=== PATIENT | female | born 2005 | race Caucasian/White ===

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

== ENCOUNTER 2023-02-05 15:14 | Emergency (ER) | payer SELFPAY ==
--- OUTSIDE RECORDS SUMMARY | 2023-02-05 15:19 | XMS REPORT | Continuity of Care Document ---
:2005 Author Organization [facility] t Address [address] [place] [address] [address] [place] [address] Care Team Providers Name Role Phone ALETHEA MUÑOZ Primary Care Physician Unavailable Truman Harmon Attending Clinician Unavailable Kendal Jones Attending Clinician Unavailable CHACHA PALOMARES Attending Clinician Unavailable King EMILIE MD, James C Attending Clinician Unknown, Attending Attending Clinician Unavailable CHRISTIANO MUNSON III Attending Clinician Unavailable Doctor Unassigned, [place] Attending Clinician Unavailable SALBADOR MARLOW Attending Clinician Unavailable Salbador Marlow MD Attending Clinician [phone] Chacha Palomares MD Attending Clinician AZRA MIRANDA Attending Clinician Unavailable Azra Curran Attending Clinician Wade Dyson Attending Clinician JEANNIE DO Attending Clinician Unavailable Jeannie Sena Attending Clinician MARIA E BANERJEE Attending Clinician Unavailable NICOLE EASON Attending Clinician Unavailable Nicole Eason DO Attending Clinician Nurse, [facility] Attending Clinician Unavailable aMria E Banerjee MD Attending Clinician Catarina RN, Hue Ferrer Attending Clinician Unavailable Kendal Jones Admitting Clinician Unavailable NICOLE EASON Admitting Clinician Unavailable Payers Payer Name Policy Type Policy Number Effective Date Expiration Date [facility] [id number] 2022 [place]ICE [place] ST[place] 00:00:00 MEDICAID COMM [id number] 2022 [place] 00:00:00 [place] [facility] [id number] 2015 [facility] 00:00:00 Problems Condition Condition Condition Status Onset Resolution Last Treating Co mments Source Name Details Category Date Date Treatment Clinician Date No known No known Disease Unive rs active active ity of problems problems [facility] [id number] Pain, Problem [place] 17241 joint, [facility] knee, - [facility] Allergies, Adverse Reactions, Alerts Allergy Allergy Status Severity Reaction(s) Onset Inactive Treating Comm ents Source Name Type Date Date Clinician No Known DA Active U [facility]12 [facility] 00 l [facility] NO KNOWN Drug Active Univers ALLERGIE Class ity of S [facility] NO KNOWN Allergy Active [facility] Social History Social Habit Start Date Stop Date Quantity Comments Source ASSERTION 2021-12-[address] [facility]00 [facility] History of [facility] - Tobacco Use [facility] Tobacco use and 2022-07-01 2022-07-01 Smokeless tobacco [facility] exposure 00:[facility]00 00:00:00 non-user Medical Center Alcohol intake 2022-07-01 2022-07-[address] [facility] 00:00:00 00:00:00 non-drinker Medical Nadeen eubanks (finding) Exposure to 2021-09-06 2021-09-16 Not sure University of SARS-CoV-2 00:00:00 10:19:00 [place] [facility] (event) Branch Sex Assigned At [birth year] PATRICIO Pinon kekomal 00:00:00 00:00:00 Medical Center Smoking Status Start Date Stop Date Source Never smoked tobacco [facility] Medications Ordered Filled Start Stop Current Ordering Indication Dosage Frequency Signature Comments Components Source Medication Medication Date Date Medication? Clinician (SIG) Name Name Yes Take by Univer s 25/iron 3-23 mouth. ity of fum/folic/d 18:30: [facility] 20 Medical (-1 Branch ORAL) medroxyPROG Yes 150mg 1 mL by Un bravo ESTERone - Intramuscu ity o f 150 mg/mL 18:30: lar route Etienne as injection 03 every 3 Medical (three) Branch months. amoxicillin Yes [id number] 875mg Take 1 Univers 875 mg 3-23 tablet by ity of tablet 00:00: mouth in [place] 00 the Medical morning Branch and 1 tablet in the evening. citalopram 0 Yes 10mg QD Take 1 [...] mouth Center in the morning. amoxicillin 2022-0 2023- No 500mg Take 1 Un bravo 500 mg 3-22 03-30 capsule by ity of capsule 00:00: 04:59 mouth. [place] 00 :00 Medical Branch amoxicillin 2022-0 2022- No 500mg [id number] Take [address] (AMOXIL) 3-22 03-29 [id number] capsule L ukes 500 MG 00:00: 23:59 3D (500 mg Medical capsule 00 :00 total) by Center mouth in the morning and 1 capsule (500 mg total) at noon and 1 capsule (500 mg total) in the evening. Do all this for 7 days. amoxicillin 2022- No 500mg Q.[id number] Take [address] (AMOXIL) 07-01 [id number] capsule L ukes 500 MG 00:00: 23:59 3D (500 mg Medical capsule 00 :00 total) by Center mouth in the morning and 1 capsule (500 mg total) at noon and 1 capsule (500 mg total) in the evening. Do all this for 7 days. amoxicillin 2022- No 500mg Q.[id number] Take [address] (AMOXIL) 07-01 [id number] capsule L ukes 500 MG 00:00: 23:59 [...] 00:00 00 :00 Mobic 7.5 Mobic 7.5 202- No 1{table QD Mobic 7.5 MG MG 8-15 09-14 t} MG 00:00: 00:00 00 :00 Mobic 7.5 Mobic 7.5 2021- No 1{table QD Mobic 7.5 MG MG 8-15 09-14 t} MG 00:00: 00:00 00 :00 Mobic 7.5 Mobic 7.5 2021- No 1{table QD Mobic 7.5 MG MG 8-15 09-14 t} MG 00:00: 00:00 00 :00 neomycin-po 2021-0 Yes [id number] 3[drp] Place 3 Univers lymyxin-hyd 6-07 Drops in ity of rocortisone 00:00: left ear 4 [place] otic 00 (four) Medical solution times Branch daily. neomycin-po 2021-0 Yes [id number] 3[drp] Place 3 Univers lymyxin-hyd 6-07 Drops in ity of rocortisone 00:00: left ear 4 [place] otic 00 (four) Medical solution times Branch daily. neomycin-po 2021-0 Yes [id number] 3[drp] Place 3 Univers lymyxin-hyd 6-07 Drops in ity of rocortisone 00:00: left ear 4 [place] otic 00 (four) Medical solution times Branch daily. neomycin-po 2021-0 Yes [id number] 3[drp] Place 3 Univers lymyxin-hyd 6-07 Drops in ity of rocortisone 00:00: left ear 4 [place] otic 00 (four) Medical solution times Branch daily. neomycin-po 2021-0 Yes [id number] 3[drp] Place 3 Univers lymyxin-hyd 6-07 Drops in ity of rocortisone 00:00: left ear 4 [place] otic 00 (four) Medical solution times Branch daily. amoxicillin 2021- No [id number] 1{tbl} Take 1 Univers -clavulanat 6-07 06-18 tablet by it y of e 875-125 00:00: 04:59 [place] 2 [place] mg per 00 :00 (two) Medical tablet times Branch daily for 10 days. amoxicillin 2021- No [id number] 1{tbl} Take 1 Univers -clavulanat 6-07 06-18 tablet by it y of e 875-125 00:00: 04:59 mouth 2 [place] mg per 00 :00 (two) Medical tablet times Branch daily for 10 days. citalopram Yes TAKE 1 Unive rs 20 mg 5-24 TABLET BY ity of tablet 00:00: MOUTH [place] 00 EVERY DAY Medical Branch DIRECTED citalopram Yes TAKE 1 Unive rs 20 mg 5-24 TABLET BY ity of tablet 00:00: MOUTH EVERY DAY Medical Branch DIRECTED citalopram Yes TAKE 1 Unive rs 20 mg 5-24 TABLET BY ity of tablet 00:00: MOUTH EVERY DAY Medical Branch DIRECTED citalopram Yes TAKE 1 Unive rs 20 mg 5-24 TABLET BY ity of tablet 00:00: MOUTH [place] EVERY DAY Medical Branch DIRECTED citalopram Yes TAKE 1 Unive rs 20 mg 5-24 TABLET BY ity of tablet 00:00: MOUTH [place] EVERY DAY Medical Branch DIRECTED ofloxacin Yes [id number] 5[drp] Place 5 Univers 0.3 % otic 5-09 Drops in ity o f drops 00:00: left ear 2 [place] (two) Medical times Branch daily. ofloxacin 0 Yes [id number] 5[drp] Place 5 Univers 0.3 % otic 5-09 Drops in ity o f drops 00:00: left ear 2 [place] (two) Medical times Branch daily. ofloxacin Yes [id number] 5[drp] Place 5 Univers 0.3 % otic 5-09 Drops in ity o f drops 00:00: left ear 2 [place] (two) Medical times Branch daily. ofloxacin 2021-0 Yes [id number] 5[drp] Place 5 Univers 0.3 % otic 5-09 Drops in ity o f drops 00:00: left ear 2 [place] (two) Medical times Branch daily. ofloxacin Yes [id number] 5[drp] Place 5 Univers 0.3 % otic 5-09 Drops in ity o f drops 00:00: left ear 2 [place] (two) Medical times Branch daily. ofloxacin 0 Yes [id number] 5[drp] Place 5 Univers 0.3 % otic 5-09 Drops in ity o f drops 00:00: left ear 2 [place] (two) Medical times Branch daily. SERTraline 2021-0 Yes 25mg Take 25 mg U nivers 25 mg 4-21 by mouth ity of tablet 00:00: daily. [place] Medical Branch SERTraline 2021-0 Yes 25mg Take 25 mg U nivers 25 mg 4-21 by mouth ity of tablet 00:00: daily. [place] Medical Branch SERTraline 2021-0 Yes 25mg Take 25 mg U nivers 25 mg 4-21 by mouth ity of tablet 00:00: daily. [facility] Branch SERTraline Yes 25mg Take 25 mg U nivers 25 mg 4-21 by mouth ity of tablet 00:00: daily. [place] [facility] Branch SERTraline Yes 25mg Take 1 Unive rs 25 mg 4-21 tablet by ity of tablet 00:00: mouth in [place] [address] the Medical morning. Branch lactulose 2021- No 30mL 30 mL, Unive rs (CEPHULAC) 06-09 Oral, ity of solution 30 18:15: 17:41 [place] 1 [place] 00 :[place] dose, On [facility] 06/09/21 at 1215, ISIS ondansetron No 4mg 4 mg, Slow Univers (ZOFRAN 06-09 IV Push, ity of (PF)) 16:15: 15:21 ONCE, 1 [place] injection 4 00 :00 dose, On Medi berto mg [facility] 06/09/21 at 1015, ISIS morpHINE No 4mg 4 mg, Slow Un bravo injection 4 06-09 IV Push, ity of mg 16:15: 15:21 ONCE, 1 [place] 00 :00 dose, On [facility] 06/09/21 at 1015, STAT iopamidol 2021- No [id number] 100mL 100 mL, Univers (ISOVUE 06-09 Intravenou ity o f 370-500 mL) 15:37: 15:38 s, ONCE, 1 [place] injection 00 :00 dose, On Medica l 100 mL [facility] 06/09/21 at 1000, Routine medroxyPROG 2021- No [id number] 150mg Univers ESTERone 05-06 ity of (DEPO-PROVE 20:15: 18:58 [facility]) syringe 00 :00 Medical 150 mg [place] medroxyPROG 2021- No [id number] 150mg 150 mg, Univers ESTERone 05-06 Intramuscu ity of (DEPO-PROVE 20:15: 18:58 lar, ONCE, [facility]) syringe 00 :00 1 dose, On Me dical 150 mg Tue Branch 05/06/21 at 1415, Routine medroxyPROG 2022-0 Yes 150mg 150 mg by [...] Medical (three) Branch months. medroxyPROG 2020-04- No [id number] 150mg Univers ESTERone 1-02 11-02 ity of (DEPO-PROVE 20:15: 19:23 [place] RA) syringe 00 :00 Medical 150 mg Branch medroxyPROG 2020-04- No [id number] 150mg 150 mg, Univers ESTERone 04-1302 Intramuscu ity of (DEPO-PROVE 20:15: 19:23 lar, ONCE, [place] RA) syringe 00 :00 1 dose, On Me dical 150 mg Tue Branch 02/11/21 at 1515, Routine medroxyPROG 2020- No [id number] 150mg Univers ESTERone 8-10 08-10 ity of (DEPO-PROVE 22:00: 21:33 [place] RA) syringe 00 :00 Medical 150 mg Branch medroxyPROG 2020- No [id number] 150mg 150 mg, Univers ESTERone 8-10 08-10 Intramuscu ity of (DEPO-PROVE 22:00: 21:33 lar, ONCE, [place] RA) syringe 00 :00 1 dose, Medic al 150 mg Tue Branch 11/19/20 at 1700, Routine medroxyPROG 2020- No [id number] 150mg Univers ESTERone 8-10 08-10 ity of (DEPO-PROVE 22:00: 21:33 [place] RA) syringe 00 :00 Medical 150 mg Branch medroxyPROG 2020- No [id number] 150mg 150 mg, Univers ESTERone 8-10 08-10 Intramuscu ity of (DEPO-PROVE 22:00: 21:33 lar, ONCE, [place] RA) syringe 00 :00 1 dose, Medic al 150 mg Tue Branch 11/19/20 at 1700, Routine medroxyPROG 2020- No [id number] 150mg Univers ESTERone 5-17 05-17 ity of (DEPO-PROVE 16:15: 15:50 [place] RA) 00 :00 Medical injection Branch 150 mg medroxyPROG 2020- No [id number] 150mg 150 mg, Univers ESTERone 5-17 05-17 [...] every 3 Medical (three) Branch months. medroxyPROG 1-0 Yes 150mg 150 mg by Univers ESTERone 5-17 Intramuscu ity o f 150 mg/mL 10:52: lar route Etienne as injection 41 every 3 Medical (three) Branch months. medroxyPROG 2021-0 Yes 150mg 150 mg by Univers ESTERone 5-17 Intramuscu ity o f 150 mg/mL 10:52: lar route Etienne as injection 41 every 3 Medical (three) Branch months. medroxyPROG 2020-0 2020- No 150mg Univ ers ESTERone 06-03 ity of (DEPO-PROVE 18:15: 16:54 [place] RA) 00 :00 Medical injection Branch 150 mg medroxyPROG 2020-0 2020- No 150mg 150 mg, U nivers ESTERone 06-03 Intramuscu ity of (DEPO-PROVE 18:15: 16:54 lar, ONCE, [place] RA) 00 :00 1 dose, Medical injection Mon Branch 150 mg 06/03/20 at 1215, Routine medroxyPROG 2019-04- No 150mg Univ ers ESTERone -05 03- ity of (DEPO-PROVE 22:00: 20:51 [place] RA) 00 :00 Medical injection Branch 150 mg medroxyPROG 2020- 2020- No 150mg 150 mg, U nivers ESTERone 05-05 11-24 Intramuscu ity of (DEPO-PROVE 22:00: 20:51 lar, ONCE, [place] RA) 00 :00 1 dose, Medical injection Tue Branch 150 mg 03/05/20 at 1600, Routine medroxyPROG 2020- 2020- No 150mg Univ ers ESTERone 05-05 11-24 ity of (DEPO-PROVE 22:00: 20:51 [place] RA) 00 :00 Medical injection Branch 150 mg medroxyPROG 2020- 2020- No 150mg 150 mg, U nivers ESTERone 05-05 11-24 Intramuscu ity of (DEPO-PROVE 22:00: 20:51 lar, ONCE, [place] RA) 00 :00 1 dose, Medical injection Tue Branch 150 mg 03/05/20 at 1600, Routine medroxyPROG 2020-0 2020- No 150mg Univ ers ESTERone 10-26 ity of (DEPO-PROVE 17:30: 16:28 [place] RA) 00 :00 Medical injection Branch 150 mg medroxyPROG 2020-0 2020- No 150mg 150 mg, U nivers ESTERone 10-26-17 Intramuscu ity of (DEPO-PROVE 17:30: 16:28 lar, ONCE, [place] RA) 00 :00 1 dose, Medical injection Fri Branch 150 mg 10/27/19 at 1230, Routine medroxyPROG 2020-0 2020- No 150mg Univ ers ESTERone 10-26- ity of (DEPO-PROVE 17:30: 16:28 [place] RA) 00 :00 Medical injection Branch 150 mg medroxyPROG 2020-0 2020- No 150mg 150 mg, U nivers ESTERone 10-26-17 Intramuscu ity of (DEPO-PROVE 17:30: 16:28 lar, ONCE, [place] RA) 00 :00 1 dose, Medical injection Fri Branch 150 mg 10/27/19 at 1230, Routine No known No Univers medications ity of [facility] No known No Univers medications ity of [facility] Vital Signs Vital Name Observation Time Observation Value Comments Source Systolic blood 2022-07-02 23:28:00 124 mm[Hg] Univer sity of pressure [facility] Diastolic blood 2022-07-02 23:28:00 80 mm[Hg] Unive rsity of [facility] Heart rate 2022-07-02 23:28:00 99 /min Universi ty [facility] Body temperature 2022-07-02 23:28:00 36.67 Luz Maria [facility] 2022-07-02 23:28:00 15 /min [facility] Body weight 2022-07-02 23:28:00 75.297 kg Universi ty [facility] Oxygen saturation in 2022-07-02 23:28:00 97 /min [facility] Arterial blood by [facility] [place] Pulse oximetry Branch HEIGHT 2022-07-01 00:35:00 160 cm WEIGHT 2022-07-01 00:35:00 73.483 kg HEIGHT 2022-07-01 00:35:00 160 cm WEIGHT 2022-07-01 00:35:00 73.483 kg HEIGHT 2022-07-01 00:35:00 160 cm WEIGHT 2022-07-01 00:35:00 73.483 kg height 2021-12-19 10:00:00 63 [in_i] [facility] weight 2021-12-19 10:00:00 149 [lb_av] [facility] temperature 2021-12-19 10:00:00 98.1 [degF] [facility] bmi 2021-12-19 10:00:00 26.39 kg/m2 [facility] blood pressure 2021-12-19 10:00:00 120 mm[Hg] [facility] - systolic [facility] blood pressure 2021-12-19 10:00:00 64 mm[Hg] [facility] - diastolic [facility] height 2021-11-24 08:00:00 63 [in_i] [facility] weight 2021-11-24 08:00:00 149 [lb_av] [facility] bmi 2021-11-24 08:00:00 26.39 kg/m2 [facility] - [facility] blood pressure 2021-11-24 08:00:00 112 mm[Hg] [facility] - systolic [facility] blood pressure 2021-11-24 08:00:00 68 mm[Hg] [facility] - diastolic [facility] Systolic blood 2021-09-16 15:24:00 110 mm[Hg] Univer sity of pressure [facility] Diastolic blood 2021-09-16 15:24:00 70 mm[Hg] Unive rsity of pressure [facility] Heart rate 2021-09-16 15:24:00 73 /min Universi ty of [facility] Body temperature 2021-09-16 15:24:00 36.67 Luz Maria Univ ersity of [facility] Respiratory rate 2021-09-16 15:24:00 18 /min Univ ersity of [facility] Body height 2021-09-16 15:24:00 157.5 cm Universi ty of [facility] Body weight 2021-09-16 15:24:00 65.862 kg Universi ty of [facility] BMI 2021-09-16 15:24:00 26.56 kg/m2 Universi ty of [facility] Body mass index 2021-09-16 15:24:00 88.17 % Unive rsity of (BMI) [Percentile] [facility] ica Per age and sex Branch Oxygen saturation in 2021-09-16 15:24:00 100 /min University Arterial blood by [facility] [place] Pulse oximetry Branch Systolic blood 2021-08-18 03:15:00 97 mm[Hg] Univer sity of pressure [facility] Diastolic blood 2021-08-18 03:15:00 77 mm[Hg] Unive rsity of pressure [facility] Heart rate 2021-08-18 03:15:00 86 /min Universi ty of [facility] Body temperature 2021-08-18 03:15:00 37.33 Luz Maria Univ ersity of [facility] Respiratory rate 2021-08-18 03:15:00 20 /min Univ ersity of [facility] Body height 2021-08-18 03:15:00 157.5 cm Universi ty of [facility] Body weight 2021-08-18 03:15:00 64.411 kg Universi ty of [place] [facility] BMI 2021-08-18 03:15:00 25.97 kg/m2 Universi ty of [place] [facility] Body mass index 2021-08-18 03:15:00 86.34 % Unive rsity of (BMI) [Percentile] [place] Med ical Per age and sex Branch Oxygen saturation in 2021-08-18 03:15:00 100 /min University of Arterial blood by [facility] [place] Pulse oximetry Branch Systolic blood 2021-06-09 17:35:00 118 mm[Hg] Univer sity of pressure [place] [facility] Diastolic blood 2021-06-09 17:35:00 76 mm[Hg] Unive rsity of pressure [place] [facility] Heart rate 2021-06-09 17:35:00 96 /min Universi ty of [facility] Respiratory rate 2021-06-09 17:35:00 20 /min Univ ersity of [facility] Oxygen saturation in 2021-06-09 17:35:00 99 /min University of Arterial blood by [facility] [place] Pulse oximetry Branch Body temperature 2021-06-09 15:07:00 36.22 Luz Maria Univ ersity of [place] [facility] Systolic blood 2021-05-06 18:59:00 120 mm[Hg] Univer sity of pressure [place] [facility] Diastolic blood 2021-05-06 18:59:00 81 mm[Hg] Unive rsity of pressure [place] [facility] Heart rate 2021-05-06 18:59:00 89 /min Universi ty of [facility] Body temperature 2021-05-06 18:59:00 36.83 Luz Maria Univ ersity of [place] [facility] Respiratory rate 2021-05-06 18:59:00 18 /min Univ ersity of [place] [facility] Body height 2021-05-06 18:59:00 160 cm Universi ty of [place] [facility] [place] Body weight 2021-05-06 18:59:00 65.953 kg Universi ty of [place] [facility] BMI 2021-05-06 18:59:00 25.76 kg/m2 Universi ty of [facility] Body mass index 2021-05-06 18:59:00 86.06 % Unive rsity of (BMI) [Percentile] [place] Med ical Per age and sex Branch Systolic blood 2021-04-17 17:47:00 109 mm[Hg] Univer sity of pressure [place] [facility] Branch Diastolic blood 2021-04-17 17:47:00 76 mm[Hg] Unive rsity of pressure [facility] Heart rate 2021-04-17 17:47:00 114 /min Universi ty of [facility] Body temperature 2021-04-17 17:47:00 36.89 Luz Maria Univ ersity of [facility] Respiratory rate 2021-04-17 17:47:00 18 /min Univ ersity of [facility] Body weight 2021-04-17 17:47:00 64.32 kg Universi ty of [facility] Systolic blood 2021-02-11 19:23:00 125 mm[Hg] Univer sity of pressure [facility] Diastolic blood 2021-02-11 19:23:00 77 mm[Hg] Unive rsity of pressure [facility] Heart rate 2021-02-11 19:23:00 91 /min Universi ty of [facility] Body temperature 2021-02-11 19:23:00 37 Luz Maria Univ ersity of [facility] Respiratory rate 2021-02-11 19:23:00 18 /min Univ ersity of [facility] Body height 2021-02-11 19:23:00 160 cm Universi ty of [facility] Body weight 2021-02-11 19:23:00 62.143 kg Universi ty of [facility] BMI 2021-02-11 19:23:00 24.27 kg/m2 Universi ty of [facility] Body mass index 2021-02-11 19:23:00 79.59 % Unive rsity of (BMI) [Percentile] [facility] ical Per age and sex Branch Systolic blood 2020-11-19 20:49:00 116 mm[Hg] Univer sity of pressure [facility] Branch Diastolic blood 2020-11-19 20:49:00 77 mm[Hg] Unive rsity of pressure [facility] Heart rate 2020-11-19 20:49:00 81 /min Universi ty of [facility] Body temperature 2020-11-19 20:49:00 36.94 Luz Maria Univ ersity of [facility] Respiratory rate 2020-11-19 20:49:00 16 /min Univ ersity of [facility] Body height 2020-11-19 20:49:00 160 cm Universi ty of [place] [facility] Body weight 2020-11-19 20:49:00 57.425 kg Universi ty of [place] [facility] BMI 2020-11-19 20:49:00 22.43 kg/m2 Universi ty of [place] [facility] Systolic blood 2020-08-26 15:51:00 109 mm[Hg] Univer sity of pressure [place] [facility] Diastolic blood 2020-08-26 15:51:00 70 mm[Hg] Unive rsity of pressure [place] [facility] Heart rate 2020-08-26 15:51:00 80 /min Universi ty of [place] [facility] Body temperature 2020-08-26 15:51:00 36.83 Luz Maria Univ ersity of [place] [facility] Respiratory rate 2020-08-26 15:51:00 18 /min Univ ersity of [place] [facility] Body height 2020-08-26 15:51:00 160 cm Universi ty of [place] [facility] Body weight 2020-08-26 15:51:00 54.341 kg Universi ty of [place] [facility] BMI 2020-08-26 15:51:00 21.22 kg/m2 Universi ty of [place] [facility] Systolic blood 2020-08-26 15:51:00 109 mm[Hg] Univer sity of pressure [place] [facility] Diastolic blood 2020-08-26 15:51:00 70 mm[Hg] Unive rsity of pressure [place] [facility] Heart rate 2020-08-26 15:51:00 80 /min Universi ty of [place] [facility] Body temperature 2020-08-26 15:51:00 36.83 Luz Maria Univ ersity of [place] [facility] Respiratory rate 2020-08-26 15:51:00 18 /min Univ ersity of [place] [facility] Body height 2020-08-26 15:51:00 160 cm Universi ty of [place] [facility] Body weight 2020-08-26 15:51:00 54.341 kg Universi ty of [place] [facility] BMI 2020-08-26 15:51:00 21.22 kg/m2 Universi ty of [place] [facility] Systolic blood 2020-06-03 16:56:00 121 mm[Hg] Univer sity of pressure [place] [facility] Diastolic blood 2020-06-03 16:56:00 78 mm[Hg] Unive rsity of pressure [place] [facility] Heart rate 2020-06-03 16:56:00 90 /min Universi ty of [place] [facility] Body temperature 2020-06-03 16:56:00 36.67 Luz Maria Univ ersity of [place] [facility] Respiratory rate 2020-06-03 16:56:00 18 /min Univ ersity of [place] [facility] Body height 2020-06-03 16:56:00 160 cm Universi ty of [place] [facility] Body weight 2020-06-03 16:56:00 54.885 kg Universi ty of [place] [facility] BMI 2020-06-03 16:56:00 21.43 kg/m2 Universi ty of [place] [facility] Systolic blood 2020-06-03 16:56:00 121 mm[Hg] Univer sity of pressure [place] [facility] Diastolic blood 2020-06-03 16:56:00 78 mm[Hg] Unive rsity of pressure [place] [facility] Heart rate 2020-06-03 16:56:00 90 /min Universi ty of [place] [facility] Body temperature 2020-06-03 16:56:00 36.67 Luz Maria Univ ersity of [place] [facility] Respiratory rate 2020-06-03 16:56:00 18 /min Univ ersity of [place] [facility] Body height 2020-06-03 16:56:00 160 cm Universi ty of [place] [facility] Body weight 2020-06-03 16:56:00 54.885 kg Universi ty of [place] [facility] BMI 2020-06-03 16:56:00 21.43 kg/m2 Universi ty of [place] [facility] Systolic blood 2020-03-05 19:54:00 107 mm[Hg] [facility] Diastolic blood 2020-03-05 19:54:00 70 mm[Hg] [facility]ive [facility] Heart rate 2020-03-05 19:54:00 70 /min [facility] Body temperature 2020-03-05 19:54:00 36.94 Luz Maria [facility] Respiratory rate 2020-03-05 19:54:00 18 /min [facility] Body height 2020-03-05 19:54:00 160 cm [facility] Body weight 2020-03-05 19:54:00 54.432 kg [facility] [place] [facility] [place] BMI 2020-03-05 19:54:00 21.26 kg/m2 [facility] Systolic blood 2020-03-05 19:54:00 107 mm[Hg] Univer sity of pressure [facility] Diastolic blood 2020-03-05 19:54:00 70 mm[Hg] Unive rsity of pressure [facility] Heart rate 2020-03-05 19:54:00 70 /min Universi ty of [facility] Body temperature 2020-03-05 19:54:00 36.94 Luz Maria Univ ersity of [facility] Respiratory rate 2020-03-05 19:54:00 18 /min Univ ersity of [facility] Body height 2020-03-05 19:54:00 160 cm Universi ty of [facility] Body weight 2020-03-05 19:54:00 54.432 kg Universi ty of [facility] BMI 2020-03-05 19:54:00 21.26 kg/m2 Universi ty of [facility] Systolic blood 2019-10-27 15:40:00 108 mm[Hg] Univer sity of pressure [facility] Diastolic blood 2019-10-27 15:40:00 69 mm[Hg] Unive rsity of pressure [facility] Heart rate 2019-10-27 15:40:00 73 /min Universi ty of [facility] Body temperature 2019-10-27 15:40:00 36.83 Luz Maria Univ ersity of [facility] Respiratory rate 2019-10-27 15:40:00 16 /min Univ ersity of [facility] Body height 2019-10-27 15:40:00 157.5 cm [facility] [place] [facility] [place] Body weight 2019-10-27 15:40:00 54.976 kg [facility] [place] BMI 2019-10-27 15:40:00 22.17 kg/m2 Universi ty of [facility] Systolic blood 2022-07-01 01:33:00 126 mm[Hg] [facility] Diastolic blood 2022-07-01 01:33:00 72 mm[Hg] [facility] Heart rate 2022-07-01 01:33:00 97 /min [facility] Body temperature 2022-07-01 01:33:[address] [facility] Respiratory rate 2022-07-01 01:33:00 18 /min [facility] Oxygen saturation in 2022-07-01 01:33:00 97 /min [facility] Arterial blood by Medical Ce nter Pulse oximetry Body height 2022-07-01 00:35:00 160 cm [facility] Body weight 2022-07-01 00:35:00 73.483 kg [facility] BMI 2022-07-01 00:35:00 28.70 kg/m2 [facility] Body mass index 2022-07-01 00:35:00 92.20 % [facility] (BMI) [Percentile] Medical C enter Per age and sex Procedures Procedure Date / Time Performing Clinician Source Performed [id number] 2022-08-22 00:00:00 MONMA.05 [facility] [id number] 2022-08-22 00:00:00 MONMA.05 [facility] [id number] 2022-08-22 00:00:00 MONMA.05 [facility] [id number] 2022-08-22 00:00:00 MONMA.05 [facility] [id number] 2022-08-22 00:00:00 MONMA.05 [facility] ASSIGNMENT OF BENEFITS 2022-07-02 23:22:44 Doctor Unassigned, No [facility] Name [facility] SARS-COV2/INFLUENZA/RSV 2022-07-01 00:39:00 Salbador Marlow [facility] RT-PCR [facility] NOTICE OF PRIVACY 2021-08-18 02:46:54 Doctor Unassigned, No [facility] PRACTICES Name [facility] CONSENT/REFUSAL FOR 2021-08-18 02:46:14 Doctor Unassigned, [facility] ABDOMEN PELVIS W 2021-06-09 15:47:31 Nicole Eason [facility] CONTRAST [facility] LIPASE 2021-06-09 15:20:00 Nicole Eason [facility] COMP. METABOLIC PANEL 2021-06-09 15:20:00 Nicole [id number] CBC WITH DIFF 2021-06-09 15:20:00 Nicole Eason [facility] URINALYSIS 2021-06-09 15:20:00 Nicole Eason [facility] POCT TEST 2021-06-09 15:17:00 [facility] NOTICE OF PRIVACY 2021-06-09 15:03:21 Doctor Unassigned, No [facility] Name Medical Branch CONSENT/REFUSAL FOR 2021-06-09 15:03:10 Doctor Unassigned, No Un iversity [facility] DIAGNOSIS AND TREATMENT [facility] CONSENT/REFUSAL FOR 2021-04-17 17:33:56 Doctor Unassigned, No [facility] Name Medical Branch CONSENT FOR 2020-11-19 05:01:00 Doctor Unassigned, No [facility] CONTRACEPTION [facility] POCT URINALYSIS W/O 2020-03-05 00:00:00 Chacha Palomares [facility] SPECIFIC GRAVITY [facility] POCT TEST 2019-10-27 15:37:00 Chacha Palomares [facility] Plan of Care Planned Activity Planned [...] Counseling and Screening (12+)] Future Scheduled 2022-12-11 INFLUENZA VACCINE (Season [facility] Test 00:00:00 Ended) [code = INFLUENZA Med ical Center VACCINE (Season Ended)] Future Scheduled 2022-12-11 Influenza Vaccine (#1) [facility] 00:00[facility]00 [code = Influenza Vaccine Me dical Center (#1)] Future Scheduled 2022-12-11 Influenza Vaccine (#1) [facility] 00:00:00 [code = Influenza Vaccine Az dical Center (#1)] Future Scheduled 2022-09-19 DTAP/TDAP/TD VACCINES ([address] [facility] Test 00:00:00 - Tdap) [code = Medical Cent er DTAP/TDAP/TD VACCINES (1 - Tdap)] Future Scheduled 2022-09-19 DTAP/TDAP/TD VACCINES (1 [facility] [...] screening Medical Cent er (procedure) [code = 538878180] Future Scheduled 2018-09-[address] [facility] 00:00:00 virus screening Medical Cent er (procedure) [code = 518095333] Future Scheduled 2010-09-19 DTAP/TDAP/TD VACCINES (1 [facility] [...] [facility] Test 00[facility]00:00 trachomatis (procedure) [facility] [code = 819769437] Future Scheduled 2003 Screening for Chlamydia [facility] Test 00:00:00 trachomatis (procedure) [facility] [code = 602207687] Future Scheduled 2003 Screening for Chlamydia [facility] Test 00:00:00 trachomatis (procedure) [facility] [code = 867478153] Encounters Start End Encounter Admission Attending Care Care Encounter Source Date/Time Date/Time Type Type Clinicians Facility Department ID 2021-11-28 Outpatient [facility] [id number] Common 10:26:04 , [facility] 2021-11-24 [facility] [id number] Common 08:13:02 , [facility] 2022-08-21 2022-08-24 Inpatient JULIEN Jones [facility] OB [id number] [facility] 07:36:00 16:51:00 Kendal [facility] 2022-07-03 2022-07-03 Outpatient Prasad PALOMARES [facility] [id number] Univers 10:00:00 10:00:00 CHACHA dolye [facility] 2022-07-02 2022-07-02 Urgent Christiano Munson [facility] [id number] Univers 18:20:00 18:40:00 Care Unknown, Attending HEALTH [id number] ity of [place] [id number] Etienne as SUYAPA?BLEA [phone] Az palmer [address] MEDICAL OFFICE BUILDING 2022-07-02 2022-07-02 Outpatient R JEANNIE III, [facility] [id number] Univers 18:20:00 18:20:00 CHRISTIANO [facility] 2022-07-02 2022-07-02 Orders Doctor DANIELA [id number] Univers 00:00:00 00:00:00 Only Unassigned, NÉSTOR [id number] ity of [place] [facility] 4.2.7.2.686 Etienne as [phone] [address] 2022-07-01 2022-07-01 Emergency ER PETHE, [facility] Emergency [id number] [facility] 00:29:00 01:35:00 [facility] 2022-07-01 2022-07-01 Emergency Pethe, [facility] [id number] 00:29:00 01:35:00 [facility] 2022-07-01 2022-07-01 Emergency ER Pethe, [facility] [id number] 00:29:00 01:35:00 [facility] 2022-07-01 2022-07-01 Travel [facility] [id number] [facility] 00:[facility] 00:[facility]00 [facility] 2022-07-01 2022-07-01 Travel [facility] [id number] [facility] 00:[facility] 00:00:00 [facility] 2021-12-24 2021-12-24 Outpatient R ADUM, [facility] [id number] Univers 15:30:00 15:30:00 [facility] 2021-12-23 2021-12-23 Outpatient R ADUM, [facility] [id number] Univers 13:30:00 13:30:00 [facility] 2021-12-19 2021-12-19 [facility] [id number] Co mmon 00:00:00 00:00:00 VISIT EST Spir it PT LEVEL [facility] 2021-12-16 2021-12-16 Outpatient R TOM, [facility] [id number] Univers 16:15:00 16:15:00 CHACHA doyle [facility] 2021-12-11 2021-12-11 (TEL) STLMLC STLMLC [id number] Co mmon 00:00:00 00:00:00 [facility] 2021-12-11 2021-12-11 (TEL) STLMLC STLMLC [id number] Co mmon 00:00:00 00:00:00 [facility] 2021-11-25 2021-11-25 (TEL) STLMLC STLMLC [id number] Co mmon 00:00:00 00:00:00 [facility] 2021-11-24 2021-11-24 OFFICE STLMLC STLMLC [id number] Co mmon 00:00:00 00:00:00 VISIT NEW Spir it PT LEVEL 3 - [facility] 2021-11-11 2021-11-11 Outpatient R TOM, [facility] [id number] Univers 14:00:00 14:00:00 CHACHA doyle [facility] 2021-10-29 2021-10-29 [facility] [id number] Univers 00:00:00 00:00:00 [facility]acha [id number] [facility] [place] [phone] Az dic[address] 2021-09-16 2021-09-16 Outpatient Prasad MIRANDA [facility] [id number] Univers 10:40:00 11:03:11 AZRA doyle [facility] 2021-09-16 2021-09-16 Urgent Azra Miranda [facility] [id number] Univers 10:40:00 11:03:11 [facility] [id number] itjerel [facility] 4.2.7.2.686 Etienne as SUYAPA?BLEA [phone] [address] OFFICE [facility] 2021-09-16 2021-09-16 Nhung Miranda [facility] 1.2.840.114 [id number] Univers 00:00:00 00:00:00 (Out) [facility] [id number] it y of [facility] 4.2.7.2.686 Etienne as SUYAPA?BLEA [phone] [address] 2021-08-22 2021-08-22 Outpatient R TOM [facility] [id number] Univers 10:30:00 10:30:00 CHACHA [facility] 2021-08-17 2021-08-18 Emergency X SANDRA [facility] ERT [id number] Univers 22:17:00 02:20:00 JEANNIE [facility] 2021-08-17 2021-08-18 [facility] 1.2.840.114 [id number] Univers 22:17:00 02:20:00 Jeannie COONEY [id number] ity [facility] [id number] [facility] [phone] [address] 2021-08-04 2021-08-04 Outpatient R MARIA E BANERJEE [facility] [id number] Univers 14:00:00 14:00:00 ity [facility] 2021-06-09 2021-06-09 Emergency [facility] [id number] Univers 09:09:00 12:03:00 NICOLE [facility] 2021-06-09 2021-06-09 Emergency [facility] [id number] Univers 09:09:00 12:03:00 Nicole COONEY [id number] ity of [place] 4.2.7.2.686 [facility] [phone] [address] 2021-05-06 2021-05-06 Nurse Nurse, [facility] 1.2.840.114 [id number] Univers 14:00:00 14:15:00 Visit Maria E Banerjee [id number] ity of [place] [id number] [facility] [address] [facility] 2021-05-06 2021-05-06 Outpatient R MARIA E BANERJEE [facility] [id number] Univers 14:00:00 14:00:00 ity of [facility] 2021-04-18 2021-04-18 Letter DANIELA Elmore 1.2.840.114 [id number] Univers 00:00:00 00:00:00 (Out) Hue T NÉSTOR 350.1.13.10 it y of [facility] 4.2.7.2.686 Etienne as [phone] [facility] [address] [place] 2021-04-17 2021-04-17 Outpatient R RUTH [facility] [id number] Univers 11:40:00 12:28:27 AZRA ity of [facility] 2021-04-17 2021-04-17 Urgent Ruth [facility] 1.2.840.114 [id number] Univers 11:40:00 12:00:00 Care [facility] [id number] it y of [place] 4.2.7.2.686 Etienne as SUYAPA?BLEA [phone] [facility] [address] [place] MEDICAL OFFICE BUILDING 2021-04-17 2021-04-17 Orders Doctor DANIELA 1.2.840.114 [id number] Univers 00:00:00 00:00:00 Only Unassigned, NÉSTOR 350.1.13.10 ity of [place] [facility] 4.2.7.2.686 Etienne as [phone] [facility] [address] [place] 2021-02-11 2021-02-11 Nurse Nurse, [facility] 1.2.840.114 [id number] Univers 14:08:51 14:23:59 Visit Chacha Palomares 350.1.13.10 ity of [place].2.[place] [phone] [facility] [address] [facility] 2021-02-11 2021-02-11 Outpatient R TOM [facility] [id number] Univers 14:00:00 14:00:00 CHACHA doyle [facility] 2020-11-19 2020-11-19 Office Adum, [facility] 1.2.840.114 [id number] Univers 15:32:08 16:35:21 Visit Chacha Cooney 350.1.13.10 ity of [place].7.2.[place] [phone] Az dical nal [address] [place] [address] 2020-11-19 2020-11-19 Outpatient R ADUM, [facility] [id number] Univers 15:30:00 15:30:00 CHACHA jerel [facility] 2020-11-19 2020-11-19 Orders Doctor DANIELA 1.2.840.114 [id number] Univers 00:00:00 00:00:00 Only Unassigned, NÉSTOR 350.1.13.10 ity of [place] [facility] 4.2.7.2.686 Etienne as [phone] [address] 2020-10-29 2020-10-29 Outpatient R ADUM, [facility] [id number] Univers 15:30:00 15:30:00 CHACHA jerel [facility] 2020-10-28 2020-10-28 Outpatient R AD, [facility] [id number] Univers 09:30:00 09:30:00 CHACHA doyle [facility] 2020-08-26 2020-08-26 Nurse Nurse, [facility] 1.2.840.114 [id number] Univers 10:41:25 10:55:00 Visit Adum, Chacha Cooney 350.1.13.10 ity [facility] 4.2.7.2.686 [place] [phone] Az dical [address] 2020-08-26 2020-08-26 Nurse Nurse, [facility] 1.2.840.114 [id number] 10:41:25 10:55:00 Visit Emeka Cooney 350.1.13.10 Health [place] 4.2.7.2.686 Professio [phone] [address] 2020-08-26 2020-08-26 Outpatient R [facility] [id number] Univers 10:30:00 10:30:00 ity of [facility] 2020-08-26 2020-08-26 Letter [facility] 1.2.840.114 [id number] Univers 00:00:00 00:00:00 (Out) Chacha Cooney 350.1.13.10 ity of [place] 4[place].7.2.[place] [phone] Az dic[address] 2020-08-26 2020-08-26 Letter [facility] 1.2.840.114 [id number] 00:00:00 00:00:00 (Out) Chacha Cooney 350.1.13.10 [place] 4.2.7.2.686 Professio [phone] [address] 2020-06-03 2020-06-03 Nurse Nurse, [facility] 1.2.840.114 [id number] [facility] 10:17:51 10:57:39 Visit Chacha Palomares 350.1.13.10 ity of [place] 4[place].7.2.[place] [phone] [address] 2020-06-03 2020-06-03 Nurse Nurse, [facility] 1.2.840.114 [id number] 10:17:51 10:57:39 Visit WomenSonias Karl 350.1.13.10 [facility] 4.2.7.2.686 Professio [phone] [address] 2020-06-03 2020-06-03 Outpatient R [facility] [id number] Univers 10:30:00 10:30:00 ity of [facility] 2020-03-05 2020-03-05 [facility] 1.2.840.114 [id number] Univers 13:37:24 14:50:22 Visit Chacha Cooney 350.1.13.10 ity of [place] 4[place]2.7.2.[place] [phone] [address] 2020-03-05 2020-03-05 [facility] 1.2.840.114 [id number] 13:37:24 14:50:22 Visit Chacha [place] 350.1.13.10 [place] 4.2.7.2.686 Professio [phone] [address] 2020-03-05 2020-03-05 Outpatient R AD, [facility] [id number] Univers 13:30:00 13:30:00 [facility] 2020-02-29 2020-02-29 Outpatient R AD, [facility] [id number] Univers 16:00:00 16:00:00 [facility] 2020-02-29 2020-02-29 [facility] [id number] Univers 00:00:00 00:00:00 Chacha Cooney 350.1.13.10 ity of [place] 4.2.7.2.[place] [phone] [address] 2020-01-19 2020-01-19 Outpatient R [facility] [id number] Univers 15:30:00 15:30:00 ity [facility] 2020-01-19 2020-01-19 Outpatient R [facility] [id number] Univers 09:00:00 09:00:00 ity [facility] 2019-11-08 2019-11-08 [facility] [id number] Univers 09:30:00 09:30:00 [facility] 2019-10-27 2019-10-27 Office [facility] 1.2.840.114 [id number] Univers 10: 11:32:52 Visit Chacha Cooney 350.1.13.10 ity of [place] 4.2.7.2.[place] [phone] [address] 2019-10-27 2019-10-27 [facility] [id number] Univers 10:00:00 10:00:00 [facility] Results Test Description Test Time Test Comments Results Result Comments Source AG HEPATITIS B SURFACE 2022-08-21 21:48:00 Test Item Value Reference Range Interpretation Comme nts AG HEPATITIS B SURFACE (test code = HBSAG) NONREACTIVE NONREACTIVE AB HEPATITIS C [id number] 21:48:00 Test Item Value Reference Range Interpretation Comments AB HEPATITIS C (test code = NONREACTIVE NONREACTIVE HCVAB) SIGNAL TO CUTOFF (test code = 0.16 <0.80 N CUTOFF) AB [id number] 21:48:00 Test Item Value Reference Range Interpretation Comments AB TREPONEMA (test code = TREPAB) NONREACTIVE NONREACTIVE AB HIV 1 21:48:00 Test Item Value Reference Range Interpretation Comments AB HIV 1 2 (test NONREACTIVE NONREACTIVE [facility] code = [id number]) 4th Gen HIV Ag/Ab Combo Screen Coronavirus 2019 nCoV [id number] 21:01:00 Test Item Value Reference Range Interpretation Comments Coronavirus 2019 Negative Negative Negative r esults should nCoV Bedside (test be treate d as presumptive code = and, ifinconsis tent with [id number]) clinical signs and symptoms or nec essaryfor [...] ROM FDA UA RFLX MICR CULT IF [id number] 19:29:00 Test Item Value Reference Range Interpretation [...] > 100.4 FSpecimen Description: CLEAN CATCHComments to Precision L[employer] 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: [id number] 19:21:00 Test Item Value Reference Range Interpretation Comments LACTIC ACID (test code = LACT) 1.1 MMOL/L 0.5-2.2 N CBC W/AUTO [id number] 19:06:00 Test Item Value Reference Range Interpretation [...] NORMAL NORMAL code = PLTMR) RUPTURE OF [id number] 09:36:00 Test Item Value Reference Range Interpretation Comments RUPTURE OF MEMBRANES (test code NON-RUPTURED = ROM) CBC W/AUTO [id number] 09:24:00 Test Item Value Reference Range Interpretation [...] SARS-Co V-2 (test code = target nucleic 93677-0) acids are not detected in thi s [...] om SARS-CoV-2 in a nasopharyngeal swab specimen [facility] from individual s suspected of COVID-19 by the ir healthcare provider. Influenza A RT-PCR Negative Negative The Flu A target (test code = [place] [address]-0) not detected in this specimen. Influenza B RT-PCR Negative Negative The Flu B target (test code = [place] 89791-7) not detected in this specimen. RSV by RT-PCR (test Negative Negative The RSV target code = 00042-8) nucleic acid s are not detected in [...] the Act. Fact Sheet for Healthcare Providers:https://w [employer].Remotemedical/Docu ments/Xpert%20Xpres s%20SARS%20CoV-2/Fa ct%20Sheets/302-390 2%61GCOV-DAN-1%20HE ALTHCARE%20PROVIDER S%20FACT%20SHEET.pd f Fact Sheet for Healthcare Patients:https://lien Just Be Friends/Docum ents/Xpert%20Xpress %20SARS%20Cov-2/Fac t%20Sheets/302-3801 %59DVCI-OSQ-5%20PAT IENT%20FACT%20SHEET .pdf Lab Interpretation Normal (test code = 30913-6) [facility] (Symptomatic ONLY) 2022-07-01 01:24:45 Test Item Value Reference Interpretation Comments Range SARS-COV2/RT-PCR Negative Negative The SARS-Co V-2 (test code = target nucleic 07968-4) acids are not detected in thi s [...] rapid, real-nelson e RT-PCR test intended for th e qualitative detection of nucleic acid fr om SARS-CoV-2 in a nasopharyngeal swab specimen collec елена from individual s suspected of COVID-19 by the ir healthcare provider. Influenza A RT-PCR Negative Negative The Flu A target (test code = [place] 40763-4) not detected in this specimen. Influenza B RT-PCR Negative Negative The Flu B target (test code = [place] 41537-8) not detected in this specimen. RSV by RT-PCR (test Negative Negative The RSV target code = 40025-9) nucleic acid s are not detected in [...] SARS-CoV-2/Flu/RSV by their healthcare provider. Results from [facility] Xpert Xpress SARS-CoV-2/Flu/RSV test should be correlated [...] the Act. Fact Sheet for Healthcare Providers:https://w Songza/Docu ments/Xpert%20Xpres s%20SARS%20CoV-2/Fa ct%20Sheets/302-390 2%80DXTQ-UTB-2%20HE ALTHCARE%20PROVIDER S%20FACT%20SHEET.pd f Fact Sheet for Healthcare Patients:https://[employer]/Docum ents/Xpert%20Xpress %20SARS%20Cov-2/Fac t%20Sheets/302-3801 %89DUUG-HTG-5%20PAT IENT%20FACT%20SHEET .pdf Lab Interpretation Normal (test code = 91978-4) [facility]V RT-[facility] (Symptomatic ONLY) 2022-07-01 01:24:45 Test Item Value Reference Interpretation Comments Range SARS-COV2/RT-PCR Negative Negative The SARS-Co V-2 (test code = target nucleic 76412-5) acids are not detected in thi s [...] rapid, real-nelson e RT-PCR test intended for th e qualitative detection of nucleic acid fr om SARS-CoV-2 in a nasopharyngeal swab specimen colle елена from individual s suspected of COVID-19 by the healthcare provider. Influenza A RT-PCR Negative Negative The Flu A target (test code = [place] 90001-5) not detected in this specimen. Influenza B RT-PCR Negative Negative The Flu B target (test code = [place] 47227-2) not detected in this specimen. RSV by RT-PCR (test Negative Negative The RSV target code = 89288-3) nucleic acid s are not detected in [...] SARS-CoV-2/Flu/RSV by their healthcare provider. Results from [facility] Xpert Xpress SARS-CoV-2/Flu/RSV test should be correlated [...] the Act. Fact Sheet for Healthcare Providers:https://w Songza/Docu ments/Xpert%20Xpres s%20SARS%20CoV-2/Fa ct%20Sheets/302-390 2%24VUQX-RZA-1%20HE ALTHCARE%20PROVIDER S%20FACT%20SHEET.pd f Fact Sheet for Healthcare Patients:https://ww [employer]/Docum ents/Xpert%20Xpress %20SARS%20Cov-2/Fac t%20Sheets/302-3801 %24RGZI-YUQ-3%20PAT IENT%20FACT%20SHEET .pdf Lab Interpretation Normal (test code = 23294-8) [facility]RSV [id number] 01:24:45 Test Item Value Reference Range Interpretation Comments SARS-COV2/RT-PCR Negative Negative The SARS-Co V-2 target (test code = nucleic acids a re not 6198739) detected in thi s specimen. Negat august [...] individuals michael pected of COVID-19 by the [facility] ider. INFLUENZA A RT-PCR Negative Negative The Flu A target nucleic (test code = acids are not d etected in 19100516) this specimen. INFLUENZA B RT-PCR Negative Negative The Flu B target nucleic (test code = acids are not d etected in 19100517) this specimen. RSV RT-PCR (test Negative Negative The RSV [facility] nucleic code = 9351408) acids are no t detected in this [...] of the Act.Fact Sheet for Healthcare Providers:https ://www.[employer]/Documents/Xpert%20Xpress%20SARS%20CoV-2/Fact%20Sheets/302-390 2%74AMQW-QLC-6%20HEALTHCARE%20PROVIDERS%20FACT%20SHEET.pdfFact Sheet for Healthcare Patients:https://www.Camp[employer].nfon/Docum ents/Xpert%20Xpress%20SARS%20Cov-2/Fact%20Sheets/302-3801%72QIXU-ABO-3%20PATIENT %20FACT%20SHEET.pdfCOMP. METABOLIC PANEL (62447)2021-06-09 16:06:38 Test Item Value Reference Range Interpretation Comments NA (test code = 137 mmol/L 135-145 7560902226) K (test code = 4.5 mmol/L 3.5-5.0 5331436141) CL (test code = 103 mmol/L 98-108 8206288677) CO2 TOTAL (test code = 24 mmol/L 23-31 8888106878) AGAP (test code = 2-16 5021427987) BUN (test code = 14 mg/dL 7-23 2490745957) GLUCOSE (test code = 96 mg/dL 70-110 1445217019) CREATININE (test code = 0.67 mg/dL 0.50-1.04 0769284490) TOTAL BILI (test code = 0.6 mg/dL 0.1-1.9 6156643956) CALCIUM (test code = 9.5 mg/dL 8.6-10.6 1479266742) T PROTEIN (test code = 7.2 g/dL 6.3-8.2 5859123669) ALBUMIN (test code = 5.0 g/dL 3.5-5.0 2477962477) ALK PHOS (test code = 98 U/L 34-122 0399019903) ALTv (test code = 17 U/L 5-35 1742-6) AST(SGOT) (test code = 22 U/L 13-40 7515624194) TOPHER (test code = TOPHER) Association of [...] tests). Lab Interpretation Normal (test code = 85388-9) [facility] 16[facility]06:18 Test Item Value Reference Range Interpretation Comments LIPASE (test code = 6550693798) 170 U/L 0-220 Lab Interpretation (test code = Normal 99452-2) [facility] WITH [id number] 15:48:57 Test Item Value Reference Range Interpretation Comments WBC (test code = See_Comment [Automated 7382-2) message] The sy stem which generated this result transmitted reference range : 4.50 - 13.50 10*3/?L. The reference range was not used to interpret this result as normal/abnormal . RBC (test code = See_Comment H [Automated 354-8) message] The sy stem which generated this [...] RDW-SD (test code = 39.2 fL 38.5-49.0 16958-7) RDW-CV (test code = 12.7 % 11.5-14.0 788-0) PLT (test code = See_Comment [Automated 777-3) message] The sy stem which generated this result transmitted reference range : 135 - 361 10*3/ ?L. The reference r zeina was not used to interpret this result as normal/abnormal . MPV (test code = 9.5 fL 9.4-13.3 93844-9) NRBC/100 WBC (test See_Comment [Automat ed code = 5133824965) message] The system which generated this result transmitted reference range : 0.0 - 10.0 /100 WBCs. The refer ence range was not u sed to interpret th is result as normal/abnormal . NRBC x10^3 (test code <0.01 See_Comment [Auto mated = 3693599160) message] The s ystem which generated this result transmitted reference range : 10*3/?L. The reference range was not used to interpret this result as normal/abnormal . GRAN MAT (NEUT) % 78.9 % (test code = 770-8) IMM GRAN % (test code 0.40 % = 9564838168) LYMPH % (test code = 16.3 % 736-9) MONO % (test code = 3.5 % 5905-5) EOS % (test code = 0.5 % 713-8) BASO % (test code = 0.4 % 706-2) GRAN MAT x10^3(ANC) 6.64 10*3/uL 1.50-10.30 (test code = 2894500137) IMM GRAN x10^3 (test 0.03 10*3/uL 0.00-0.06 code = 3317834153) LYMPH x10^3 (test code 1.37 10*3/uL 0.70-7.40 = 731-0) MONO x10^3 (test code 0.29 10*3/uL 0.00-0.50 = 742-7) EOS x10^3 (test code = 0.04 10*3/uL 0.00-0.40 711-2) BASO x10^3 (test code 0.03 10*3/uL 0.00-0.10 = 704-7) Lab Interpretation Abnormal (test code = 89025-5) [facility] [id number] 15:17:00 Test Item Value Reference Range Interpretation Comments POCT PREG (test code = 1605) NEGATIVE On board controls acceptable with present C Line (test code = 3574) POCT PREG LOT # (test code = 3575) [id number] POCT PREG TEST DATE (test 05/12/2022 code = 3576) Lab Interpretation (test code = Normal 52822-7) [facility] URINALYSIS W/O SPECIFIC [id number] 20:51:00 Test Item Value Reference Range Interpretation [...] code = 3257) n/a Negative - Negative [facility] URINALYSIS W/O SPECIFIC [id number] 20:51:00 Test Item Value Reference Range Interpretation [...] code = 3257) n/a Negative - Negative [facility] [id number] 15:37:00 Test Item Value Reference Range Interpretation Comments POCT PREG (test code = 1605) Negative On board controls acceptable with C Yes Line (test code = 3574) POCT PREG LOT # (test code = 3575) POCT PREG TEST DATE (test code = 3576) [facility] [id number] 15:37:00 Test Item Value Reference Range Interpretation Comments POCT PREG (test code = 1605) Negative On board controls acceptable with C Yes Line (test code = 3574) POCT PREG LOT # (test code = 3575) POCT PREG TEST DATE (test code = 3576) [facility]"
--- NOTE | 2023-02-05 16:48 | RAD REPORT ---
EXAM DESCRIPTION: Ruby Single View02/05/2023 4:27 pm CLINICAL HISTORY: Chest pain COMPARISON: none FINDINGS: The lungs appear clear of acute infiltrate. The heart is normal size IMPRESSION: No acute abnormalities displayed
[2023-02-05 17:57] LABS: Specific Gravity 1.015 (1.005-1.030)
[2023-02-05 17:58] LABS: Specific Gravity 1.015 (1.005-1.030); Urine Bacteria None Seen /HPF (<20); Urine Bilirubin NEGATIVE (Negative); Urine Blood Trace (Negative); Urine Clarity Clear (Clear); Urine Color Colorless (Yellow); Urine Glucose NEGATIVE (Negative); Urine Protein NEGATIVE (Negative); Urine RBC <5 /HPF (None Seen); Urine Urobilinogen Normal (Normal)
[2023-02-05 18:00] LABS: Absolute Lymphocytes (CBC) 1.9 K/uL (0.7-4.9); Hematocrit 35.1 % (36.0-45.0); Lymphocytes % 31.9 % (15.3-44.8); MCV 72.1 fL (80-100); MPV 7.2 fL (7.6-11.3); Platelets 265 thou/uL (152-406); RBC Red Blood Cell Count 4.87 M/uL (3.86-4.86)
[2023-02-05 18:14] LABS: ALT/SGPT 23 U/L (13-56); AST/SGOT 12 U/L (15-37); Albumin 3.8 g/dL (3.4-5.0); Alkaline Phosphatase 97 U/L (45-117); BUN Blood Urea Nitrogen 10 mg/dL (7-18); Bicarbonate 30 mEq/L (21-32); Bilirubin Total 0.4 mg/dL (0.2-1.0); Glomerular Filtration Rate 107 ml/min (=/>90); Glucose Level 93 mg/dL (74-106); Magnesium 2.1 mg/dL (1.6-2.4); Potassium 3.9 mEq/L (3.5-5.1); Protein, Total 7.1 g/dL (6.4-8.2); Sodium Level 138 mEq/L (136-145); Thyroid Stimulating Hormone 0.641 uIU/mL (0.358-3.740)
[2023-02-05 18:20] LABS: Bilirubin Direct < 0.1 mg/dL (0-0.2); Bilirubin Indirect, Calculated ND mg/dL (0.2-0.8); Troponin High Sensitivity < 3.0 pg/mL (<58.9)
--- NOTE | 2023-02-05 18:27 | EDPHYS ---
Physician Documentation [facility] Name: Marlyn Garcia Age: 17 yrs Sex: Female : 2005 Arrival Date: 02/05/2023 Time: 15:14 Bed 16 Private MD: ED Physician Roney Panchal HPI: 02/05 17:31 This 17 yrs old Female presents to ER via Ambulatory with complaints of Chest Pain. sb4 17:31 The patient or guardian reports chest pain that is located primarily in the substernal sb4 area. The pain radiates to back. Associated signs and symptoms: The patient has no apparent associated signs or symptoms. The chest pain is described as sharp. Duration: The patient or guardian reports multiple episodes, with no pattern. Modifying factors: The symptoms are alleviated by nothing. the symptoms are aggravated by deep breath. The patient has not experienced similar symptoms in the past. The patient has not recently seen a physician. Historical: - PMHx: 15:43 bladder reflux; ld1 - PSHx: 15:43 Tonsillectomy; ld1 - Immunization history:: Adult Immunizations up to date, Client reports receiving the 2nd dose of the Covid vaccine. - Social history:: Smoking status: Reported history of juuling and/or vaping. Patient/guardian denies using alcohol. ROS: 17:31 Constitutional: Negative for fever, chills, and weight loss, sb4 17:31 Cardiovascular: Positive for chest pain, 17:31 All other systems are negative, Exam: 17:31 Constitutional: This is a well developed, well nourished patient who is awake, alert, sb4 and in no acute distress. Head/Face: Normocephalic, atraumatic. Eyes: Extra-ocular motions intact. Periorbital areas with no swelling, redness, or edema. ENT: Mucous membranes moist. Cardiovascular: Regular rate and rhythm with a normal S1 and S2. Respiratory: Lungs have equal breath sounds bilaterally, clear to auscultation and percussion. No rales, rhonchi or wheezes noted. No increased work of breathing, no retractions or nasal flaring. Abdomen/GI: Soft, non-tender, no distension. Skin: Warm, dry with normal turgor. Normal color with no rashes, no lesions, and no evidence of cellulitis. MS/ Extremity: Pulses equal, no cyanosis. Neurovascular intact. Full, normal range of motion. Neuro: Awake and alert, GCS 15, oriented to person, place, time, and situation. Motor strength 5/5 in all extremities. Sensory grossly intact. Vital Signs: 15:42 Pulse 99; Resp 20; Temp 98.7; Pulse Ox 100% ; Weight 77.11 kg; Height 5 ft. 3 in. ; ld1 Pain 10/10; 15:44 BP 135 / 83; Pulse 78; ld1 17:42 BP 120 / 83; Pulse 67; Resp 16 S; Pulse Ox 99% ; kc6 15:42 Body Mass Index 30.11 (77.11 kg, 160.02 cm) - Percentile 93.8 % ld1 15:42 Pain Scale: Adult ld1 MDM: 15:48 Patient medically screened. sb4 17:31 Differential diagnosis: abnormal EKG, acute pericarditis, anxiety, chest wall pain, sb4 costochondritis, gastritis, pancreatitis, peptic ulcer disease, pleurisy, pneumonia, pulmonary embolus. 18:26 Data reviewed: vital signs, nurses notes, lab test result(s), EKG, radiologic studies, sb4 and as a result, I will discharge patient. Counseling: I had a detailed discussion with the patient and/or guardian regarding the historical points, exam findings, and any diagnostic results supporting the discharge/admit diagnosis, lab results, radiology results, to return to the emergency department if symptoms worsen or persist or if there are any questions or concerns that arise at home. 02/05 15:52 Order name: Basic Metabolic Panel; Complete Time: 18:21 sb4 02/05 15:52 Order name: CBC with Diff; Complete Time: 18:02 sb4 02/05 15:52 Order name: D-Dimer; Complete Time: 18:16 sb4 02/05 15:52 Order name: LFT's; Complete Time: 18:21 sb4 02/05 15:52 Order name: Magnesium; Complete Time: 18:21 sb4 02/05 15:52 Order name: Troponin HS; Complete Time: 18:21 sb4 02/05 15:52 Order name: UAM; Complete Time: 18:01 sb4 02/05 15:52 Order name: Test, Urine; Complete Time: 18:01 sb4 02/05 15:52 Order name: TSH; Complete Time: 18:21 sb4 02/05 15:52 Order name: XRAY Chest (1 view); Complete Time: 16:52 sb4 02/05 15:52 Order name: EKG; Complete Time: 15:52 sb4 02/05 15:52 Order name: Cardiac monitoring; Complete Time: 17:40 sb4 02/05 15:52 Order name: EKG - Nurse/Tech; Complete Time: 17:40 sb4 02/05 15:52 Order name: IV Saline Lock; Complete Time: 17:40 sb4 02/05 15:52 Order name: Labs collected and sent; Complete Time: 17:40 sb4 02/05 15:52 Order name: O2 Per Protocol; Complete Time: 17:21 sb4 02/05 15:52 Order name: O2 Sat Monitoring; Complete Time: 17:21 sb4 EC:46 Rate is 68 beats/min. Rhythm is regular, Normal Sinus Rhythm. QRS [place] is Normal. [place] sb4 interval is normal at 146 msec. QRS interval is normal at 84 msec. QT interval is normal at 384 msec. No Q waves. T waves are Normal. No ST changes noted. Clinical impression: Normal ECG. Interpreted by me. Reviewed by me. Administered Medications: No medications were administered Disposition Summary: 02/05/23 18:26 Discharge Ordered Notes: Location: Home sb4 Problem: an ongoing problem sb4 Symptoms: are unchanged sb4 Condition: Stable sb4 Diagnosis - Costochondritis sb4 Followup: sb4 - With: Private Physician - When: As needed - Reason: Recheck today's complaints, Re-evaluation by your physician Discharge Instructions: - Discharge Summary Sheet sb4 - Costochondritis, [id number]-[id number] sb4 Forms: - Medication Reconciliation Form sb4 - Thank You Letter sb4 - Antibiotic Education sb4 - Prescription Opioid Use sb4 - Patient Portal Instructions sb4 - Leadership Thank You Letter sb4 Prescriptions: - Diclofenac Sodium 75 mg Oral Tablet Sustained Release - take 1 tablet ORAL route 2 times per day; 30 tablet; Refills: 0, Product sb4 Selection Permitted Signatures: Dispatcher [facility] Riri Turner RN RN ld1 Mansi Carrero PA-C PA-C sb4
--- NOTE | 2023-02-05 18:27 | ER ---
Nurse's Notes [facility] Name: Marlyn Garcia Age: 17 yrs Sex: Female : 2005 Arrival Date: 02/05/2023 Time: 15:14 Bed 16 Private MD: Diagnosis: Costochondritis Presentation: 02/05 15:42 Chief complaint: Patient states: intermittent stabbing pain in arm and chest since ld1 December 2022. Coronavirus screen: Client denies travel out of the [place] in the last 14 days. Client indicates they have traveled out of the [place] in the last 14 days. At this time, unable to obtain information related to travel outside the [place] Ebola Screen: Patient negative for fever greater than or equal to 101.5 degrees Fahrenheit, and additional compatible Ebola Virus Disease symptoms Patient denies exposure to infectious person. Patient denies travel to an Ebola-affected area in the 21 days before illness onset. No symptoms or risks identified at this time. Initial Sepsis Screen: Does the patient meet any 2 criteria? No. Patient's initial sepsis screen is negative. Does the patient have a suspected source of infection? No. Patient's initial sepsis screen is negative. Risk Assessment: Do you want to hurt yourself or someone else? Patient reports no desire to harm self or others. Onset of symptoms was February 05, 2023. 15:42 Method Of Arrival: Ambulatory ld1 15:42 Acuity: CT 3 ld1 Triage Assessment: 15:43 General: Appears uncomfortable, Behavior is calm, cooperative, appropriate for age. ld1 Pain: Complains of pain in chest. Neuro: Level of Consciousness is awake, alert, obeys commands, Oriented to person, place, time, situation, Appropriate for age. Cardiovascular: Capillary refill < 3 seconds Patient's skin is warm and dry. Respiratory: Airway is patent Respiratory effort is even, unlabored, Respiratory pattern is regular, symmetrical. Historical: - PMHx: 15:43 bladder reflux; ld1 - PSHx: 15:43 Tonsillectomy; ld1 - Immunization history:: Adult Immunizations up to date, Client reports receiving the 2nd dose of the Covid vaccine. - Social history:: Smoking status: Reported history of juuling and/or vaping. Patient/guardian denies using alcohol. Screenin:40 [facility] ED Fall Risk Assessment (Adult) History of falling in the last 3 months, kc6 including since admission No falls in past 3 months (0 pts) Confusion or Disorientation No (0 pts) Intoxicated or Sedated No (0 pts) Impaired Gait No (0 pts) Mobility Assist Device Used No (0 pt) Altered Elimination No (0 pt) Score/Fall Risk Level 0 - 2 = Low Risk. Abuse screen: Denies threats or abuse. Denies injuries from another. Nutritional screening: No deficits noted. Tuberculosis screening: No symptoms or risk factors identified. Assessment: 17:41 General: Appears in no apparent distress. comfortable, Behavior is calm, cooperative, kc6 appropriate for age. Pain: Complains of pain in chest Pain does not radiate. Pain began months ago Is intermittent. Neuro: Level of Consciousness is awake, alert, obeys commands, Oriented to person, place, time, situation, Appropriate for age. Cardiovascular: Capillary refill < 3 seconds. Respiratory: Airway is patent Trachea midline Respiratory effort is even, unlabored, Respiratory pattern is regular, symmetrical. GI: No signs and/or symptoms were reported involving the gastrointestinal system. : No signs and/or symptoms were reported regarding the genitourinary system. EENT: No signs and/or symptoms were reported regarding the EENT system. Derm: No signs and/or symptoms reported regarding the dermatologic system. Skin is intact, is healthy with good turgor, Skin is pink, warm \T\ dry. Musculoskeletal: No signs and/or symptoms reported regarding the musculoskeletal system. Circulation, motion, and sensation intact. Capillary refill < 3 seconds, Range of motion: intact in all extremities. 18:41 Reassessment: Patient appears in no apparent distress at this time. No changes from kc6 previously documented assessment. Patient and/or family updated on plan of care and expected duration. Pain level reassessed. Patient is alert, oriented x 3, equal unlabored respirations, skin warm/dry/pink. Vital Signs: 15:42 Pulse 99; Resp 20; Temp 98.7; Pulse Ox 100% ; Weight 77.11 kg; Height 5 ft. 3 in. ; ld1 Pain 10/10; 15:44 BP 135 / 83; Pulse 78; ld1 17:42 BP 120 / 83; Pulse 67; Resp 16 S; Pulse Ox 99% ; kc6 15:42 Body Mass Index 30.11 (77.11 kg, 160.02 cm) - Percentile 93.8 % ld1 15:42 Pain Scale: Adult ld1 ED Course: 15:18 Patient arrived in ED. ts1 15:43 Triage completed. ld1 15:43 Arm band placed on right wrist. ld1 15:48 Mansi Carrero PA-C is PHCP. sb4 15:48 Roney Panchal MD is Attending Physician. sb4 16:29 XRAY Chest (1 view) In Process Unspecified. EDMS 17:21 Rachel Peck, RN is Primary Nurse. kc6 17:40 Patient has correct armband on for positive identification. Bed in low position. Call kc6 light in reach. Side rails up X 1. Adult w/ patient. Client placed on continuous cardiac and pulse oximetry monitoring. NIBP monitoring applied. 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 kc6 Blood collected. Patient maintains SpO2 saturation greater than 95% on room air. 19:13 No provider procedures requiring assistance completed. IV discontinued, intact, kc6 bleeding controlled, No redness/swelling at site. Pressure dressing applied. Administered Medications: No medications were administered Medication: 19:13 VIS not applicable for this client. kc6 Outcome: 18:26 Discharge ordered by . sb4 19:13 Discharged to home ambulatory, with significant other, kc6 19:13 Condition: stable 19:13 Discharge instructions given to patient, Instructed on discharge instructions, follow up and referral plans. medication usage, Demonstrated understanding of instructions, follow-up care, medications, Prescriptions given X 1, 19:14 Patient left the ED. kc6 Signatures: Dispatcher [employer] [facility] Riri Chamberlain RN RN ld1 Rachel Peck RN RN kc6 Mansi Carrero PA-C PA-C sb4 Simpson, Tanya, PAS PAS ts1
[2023-02-05 19:48] VITALS: TEMP 98.7
[2023-02-05 19:51] VITALS: BP 120/83; O2SAT 99
--- NOTE | 2023-02-09 08:02 | EKG ---
Test Date: 2023-02-05 Test Time: 17:29:11 Statistics Intern: VIJAY MEASUREMENT RESULTS: Intervals: Rate: 68 ME: 146 QRSD: 84 QT: 384 QTc: 408 [place]: P: 71 ME: 146 QRS: 88 T: 59 INTERPRETIVE STATEMENTS: Normal sinus rhythm Normal ECG No previous ECG available for comparison Electronically Signed On 02-09-23 07:54:34 CDT by Lai Gavin
== END 2023-02-05 19:14 | disposition home or self-care (01) ==
LOC: ER 15:14
DX: M94.0 Chondrocostal junction syndrome [Tietze] (principal)
CPT/HCPCS: 36415; 71045; 80048; 80076; 81001; 81025; 83735; 84443; 84484; 85025; 85379; 93005; 99285

== ENCOUNTER 2023-09-04 02:45 | Emergency (ER) | payer SELFPAY ==
[2023-09-04 03:25] LABS: Specific Gravity 1.017 (1.005-1.030); Specific Gravity 1.018 (1.005-1.030); Sqamous Epithelial <5 /HPF (None Seen); Urine Bacteria None Seen /HPF (<20); Urine Bilirubin NEGATIVE (Negative); Urine Blood Trace (Negative); Urine Clarity Clear (Clear); Urine Color Light-Yellow (Yellow); Urine Culture Reflex Order NOT NEEDED; Urine Glucose NEGATIVE (Negative); Urine Ketones NEGATIVE (Negative); Urine Micro Reflex YN NO BILL MICROSCOPIC; Urine Mucus Slight /HPF (None Seen); Urine Nitrite NEGATIVE (Negative); Urine Protein NEGATIVE (Negative); Urine RBC <5 /HPF (None Seen); Urine Urobilinogen Normal (Normal); Urine WBC <5 /HPF (<5)
--- NOTE | 2023-09-04 03:34 | ER ---
Nurse's Notes [facility] Name: Marlyn Garcia Age: 17 yrs Sex: Female : 2005 Arrival Date: 09/04/2023 Time: 02:45 Bed 15 Private MD: Diagnosis: Urinary frequency Presentation: 09/03 02:50 Chief complaint: Patient states: lower back pain of 8,onset Wednesday, worse this AM that pf1 now radiates to LUQ,onset 0150. Patient denies any urinary symptoms. 02:50 Coronavirus screen: Vaccine status: Patient reports receiving the 2nd dose of the covid pf1 vaccine. Client denies travel out of the [place] in the last 14 days. At this time, the client does not indicate any symptoms associated with coronavirus-19. Ebola Screen: Patient negative for fever greater than or equal to 101.5 degrees Fahrenheit, and additional compatible Ebola Virus Disease symptoms. Initial Sepsis Screen: Does the patient meet any 2 criteria? HR > 90 bpm. No. Patient's initial sepsis screen is negative. Does the patient have a suspected source of infection? No. Patient's initial sepsis screen is negative. Risk Assessment: Do you want to hurt yourself or someone else? Patient reports no desire to harm self or others. Onset of symptoms was August 29, 2023. 02:50 Method Of Arrival: Ambulatory pf1 02:50 Acuity: CT 3 pf1 Triage Assessment: 02:50 General: Appears in no apparent distress. comfortable, well groomed, well developed, pf1 Behavior is calm, cooperative, appropriate for age, quiet. Pain: Complains of pain in back and abdomen Pain currently is 8 out of 10 on a pain scale. 02:50 EENT: No deficits noted. No signs and/or symptoms were reported regarding the EENT pf1 system. Neuro: No deficits noted. Level of Consciousness is awake, alert, obeys commands, Oriented to person, place, time, situation. Cardiovascular: No deficits noted. Capillary refill < 3 seconds Patient's skin is warm and dry. Respiratory: No deficits noted. Airway is patent Respiratory effort is even, unlabored, Respiratory pattern is regular, symmetrical, Breath sounds are clear bilaterally. GI: Abdomen is round non-distended, Reports upper abdominal pain. : No deficits noted. No signs and/or symptoms were reported regarding the genitourinary system. Derm: No deficits noted. No signs and/or symptoms reported regarding the dermatologic system. Musculoskeletal: Reports pain in back. 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 - Infectious Disease History:: Denies. - Social history:: Smoking status: Reported history of juuling and/or vaping. Patient uses alcohol, occasionally. Patient/guardian denies using street drugs. Screenin:50 [facility] ED Fall Risk Assessment (Adult) History of falling in the last 3 months, pf1 including since admission No falls in past 3 months (0 pts) Confusion or Disorientation No (0 pts) Intoxicated or Sedated No (0 pts) Impaired Gait No (0 pts) Mobility Assist Device Used No (0 pt) Altered Elimination No (0 pt) Score/Fall Risk Level 0 - 2 = Low Risk Oriented to surroundings, Maintained a safe environment, Educated pt \T\ family on fall prevention, incl call for assistance when getting out of bed, Assessed \T\ reinforced patient's understanding of fall precautions, Provided non-skid footwear, Hourly rounding (assess needs \T\ fall precautionary measures) done, Used ambulatory aids as needed (educated on \T\ assisted with), Used gait belt as appropriate. Abuse screen: Denies threats or abuse. Nutritional screening: No deficits noted. Tuberculosis screening: No symptoms or risk factors identified. Assessment: 02:50 Reassessment: see triage assessment. pf1 Vital Signs: 02:50 BP 141 / 93; Pulse 101; Resp 16; Temp 98.6; Pulse Ox 100% on R/A; Weight 70.76 kg; pf1 Height 5 ft. 2 in. ; Pain 8/10; 03:15 BP 116 / 75; Pulse 90; Resp 16; Pulse Ox 99% on R/A; pf1 02:50 Body Mass Index 28.53 (70.76 kg, 157.48 cm) - Percentile 90.7 % pf1 02:50 Pain Scale: Adult pf1 ED Course: 02:48 Patient arrived in ED. mr 02:50 Arm band placed on right wrist. pf1 02:50 Patient has correct armband on for positive identification. Placed in gown. Bed in low pf1 position. Call light in reach. 02:50 Door closed. Lights dimmed. Moved to private room. Warm blanket given. Pillow given. pf1 03:09 Bill Jang MD is Attending Physician. sp3 03:10 Triage completed. pf1 03:10 Urine collected: clean catch specimen, clear, Amount Voided: 100mL. pf1 03:23 Test, Urine Sent. pf1 03:23 UAM Sent. pf1 03:24 No provider procedures requiring assistance completed. pf1 03:41 Provided Education on: Follow-up instructions. cm10 03:41 Patient did not have IV access during this emergency room visit. cm10 Administered Medications: No medications were administered Medication: 03:41 VIS not applicable for this client. cm10 Outcome: 03:33 Discharge ordered by . sp3 03:41 Discharged to home ambulatory, cm10 03:41 Condition: good 03:41 Discharge instructions given to patient, Instructed on discharge instructions, follow up and referral plans. Demonstrated understanding of instructions, follow-up care, 03:43 Patient left the ED. pf1 Signatures: Sendy Al, Reg Reg Bill Jang MD MD sp3 Susy Snow RN RN pf1 Valeri Koo RN RN cm10
--- NOTE | 2023-09-04 03:34 | EDPHYS ---
Physician Documentation [facility] Name: Marlyn Garcia Age: 17 yrs Sex: Female : 2005 Arrival Date: 09/04/2023 Time: 02:45 Bed 15 Private MD: ED Physician Bill Jang HPI: 09/03 03:30 This 17 yrs old Female presents to ER via Ambulatory with complaints of Back Pain. sp3 03:30 17-year-old female with a history of bladder reflux, PCOS now presents to the ED with sp3 chief complaint concerns of bladder infection. Due to her bladder reflux surgery, it is hard for her to know when she is having infections that she frequently gets urinalyses. Incidentally she is also had vomiting and diarrhea for the last 6 days presumably due to bad food which is mainly subsided. She denies any other symptoms including fever, back pain, chest pain, shortness of breath, rash, bleeding, or any other signs or symptoms on ROS at this time.. 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 - Infectious Disease History:: Denies. - Social history:: Smoking status: Reported history of juuling and/or vaping. Patient uses alcohol, occasionally. Patient/guardian denies using street drugs. ROS: 03:31 Constitutional: Negative for fever, chills, and weight loss, Eyes: Negative for injury, sp3 pain, redness, and discharge, ENT: Negative for injury, pain, and discharge, Neck: Negative for injury, pain, and swelling, Cardiovascular: Negative for chest pain, palpitations, and edema, Respiratory: Negative for shortness of breath, cough, wheezing, and pleuritic chest pain, Back: Negative for injury and pain, MS/Extremity: Negative for injury and deformity, Skin: Negative for injury, rash, and discoloration, Neuro: Negative for headache, weakness, numbness, tingling, and seizure, Psych: Negative for depression, anxiety, suicide ideation, homicidal ideation, and hallucinations, Allergy/Immunology: Negative for hives, rash, and allergies, Endocrine: Negative for neck swelling, polydipsia, polyuria, polyphagia, and marked weight changes, Hematologic/Lymphatic: Negative for swollen nodes, abnormal bleeding, and unusual bruising, 03:31 All other systems are negative, Exam: 03:31 Constitutional: This is a well developed, well nourished patient who is awake, alert, sp3 and in no acute distress. Head/Face: Normocephalic, atraumatic. Eyes: Pupils equal round and reactive to light, extra-ocular motions intact. Lids and lashes normal. Conjunctiva and sclera are non-icteric and not injected. Cornea within normal limits. Periorbital areas with no swelling, redness, or edema. ENT: Nares patent. No nasal discharge, no septal abnormalities noted. External auditory canals are clear. Oropharynx with no redness, swelling, or masses, exudates, or evidence of obstruction, uvula midline. Mucous membranes moist. Neck: Trachea midline, no thyromegaly or masses palpated, and no cervical lymphadenopathy. Supple, full range of motion without nuchal rigidity, or vertebral point tenderness. No Meningismus. Chest/axilla: Normal chest wall appearance and motion. Nontender with no deformity. No lesions are appreciated. Cardiovascular: Regular rate and rhythm with a normal S1 and S2. No gallops, murmurs, or rubs. Normal PMI, no JVD. No pulse deficits. Respiratory: Lungs have equal breath sounds bilaterally, clear to auscultation and percussion. No rales, rhonchi or wheezes noted. No increased work of breathing, no retractions or nasal flaring. Abdomen/GI: Soft, non-tender, with normal bowel sounds. No distension or tympany. No guarding or rebound. No evidence of tenderness throughout. Back: No spinal tenderness. No costovertebral tenderness. Full range of motion. Skin: Warm, dry with normal turgor. Normal color with no rashes, no lesions, and no evidence of cellulitis. MS/ Extremity: Pulses equal, no cyanosis. Neurovascular intact. Full, normal range of motion. Neuro: Awake and alert, GCS 15, oriented to person, place, time, and situation. Cranial nerves II-XII grossly intact. Motor strength 5/5 in all extremities. Sensory grossly intact. Cerebellar exam normal. Normal gait. Vital Signs: 02:50 BP 141 / 93; Pulse 101; Resp 16; Temp 98.6; Pulse Ox 100% on R/A; Weight 70.76 kg; pf1 Height 5 ft. 2 in. ; Pain 8/10; 03:15 BP 116 / 75; Pulse 90; Resp 16; Pulse Ox 99% on R/A; pf1 02:50 Body Mass Index 28.53 (70.76 kg, 157.48 cm) - Percentile 90.7 % pf1 02:50 Pain Scale: Adult pf1 MDM: 03:10 Patient medically screened. sp3 03:32 Data reviewed: vital signs, nurses notes, lab test result(s). ED course: 17-year-old sp3 female with possible bladder infection. Differential diagnosis includes normal exam, UTI, dehydration. Clinically she does not have an acute abdomen and is not septic and does not have any critical illness. Vital signs are normal. UA demonstrates no infection and hCG is negative. We will safely discharge patient home at this time.. 09/03 03:09 Order name: UAM; Complete Time: 03:25 sp3 09/03 03:09 Order name: Test, Urine; Complete Time: 03:30 sp3 Administered Medications: No medications were administered Disposition Summary: 09/04/23 03:33 Discharge Ordered Notes: Location: Home sp3 Condition: Stable sp3 Diagnosis - Urinary frequency sp3 Followup: sp3 - With: Private Physician - When: Upon discharge from the Emergency Department - Reason: Continuance of care Discharge Instructions: - Discharge Summary Sheet sp3 - Urinary Frequency, Adult sp3 Forms: - Medication Reconciliation Form sp3 - Antibiotic Education sp3 - Prescription Opioid Use sp3 - Patient Portal Instructions sp3 - Leadership Thank You Letter sp3 Signatures: Dispatcher [employer] EDMS Bill Jang MD MD sp3 Susy Sonw RN RN pf1
[2023-09-04 04:04] VITALS: BP 116/75; TEMP 98.6; O2SAT 99
== END 2023-09-04 03:43 | disposition home or self-care (01) ==
LOC: ER 02:45
DX: R35.0 Frequency of micturition (principal)
CPT/HCPCS: 81001; 81025; 99283

== ENCOUNTER 2024-08-08 16:46 | Emergency (ER) | payer BC, SELFPAY ==
[2024-08-08 18:42] LABS: Absolute Eosinophils 0.1 K/uL (0-0.5); Absolute Lymphocytes (CBC) 1.8 K/uL (0.7-4.9); Absolute Monocytes 0.7 K/uL (0.1-1.3); Absolute Neutrophil 4.8 K/uL (1.8-8.0); Basophils % 0.5 % (0-1.3); Eosinophils % 1.7 % (0-4.4); Hematocrit 36.2 % (36.0-45.0); Hemoglobin 12.2 g/dL (12.0-15.0); Lymphocytes % 24.3 % (15.3-44.8); MCH 26.2 pg (27.0-35.0); MCHC 33.6 g/dL (32.0-36.0); MCV 78.1 fL (80-100); MPV 7.4 fL (7.6-11.3); Neutrophils % 64.5 % (41.7-73.7); Platelets 266 thou/uL (152-406); RBC Red Blood Cell Count 4.64 M/uL (3.86-4.86); Red Cell Distribution Width 15.2 % (12.1-15.2)
[2024-08-08 18:43] LABS: Specific Gravity 1.012 (1.005-1.030)
[2024-08-08 18:44] LABS: Specific Gravity 1.012 (1.005-1.030); Sqamous Epithelial <5 /HPF (None Seen); Urine Bacteria <20 /HPF (<20); Urine Bilirubin NEGATIVE (Negative); Urine Blood Negative (Negative); Urine Clarity Turbid (Clear); Urine Color Colorless (Yellow); Urine Culture Reflex Order NOT NEEDED; Urine Glucose NEGATIVE (Negative); Urine Ketones NEGATIVE (Negative); Urine Microscopic Reflex YN ORDER UMIC; Urine Mucus Slight /HPF (None Seen); Urine Nitrite NEGATIVE (Negative); Urine Protein NEGATIVE (Negative); Urine RBC <5 /HPF (None Seen); Urine Urobilinogen Normal (Normal); Urine WBC <5 /HPF (<5); Urine WBC Clump Rare /HPF (None Seen); Urine Yeast (Budding) Trace /HPF (None Seen)
[2024-08-08 18:52] LABS: PT Prothrombin Time 12.3 SECONDS (10-13.0); PTT, Activated Partial Thromb 32.5 SECONDS (27.2-37.4); Protime INR 1.08
[2024-08-08 19:07] LABS: ALT/SGPT 24 U/L (13-56); Albumin 4.1 g/dL (3.4-5.0); Albumin/Globulin Ratio 1.2 (1.1-1.8); Alkaline Phosphatase 102 U/L (45-117); Anion Gap 6.9 mEq/L (5.0-15.0); BUN Blood Urea Nitrogen 13 mg/dL (7-18); Bicarbonate 28 mEq/L (21-32); Bilirubin Total 0.3 mg/dL (0.2-1.0); Globulin 3.3 g/dL (2.3-3.5); Glomerular Filtration Rate 123 ml/min (=/>90); Glucose Level 91 mg/dL (74-106); Potassium 3.9 mEq/L (3.5-5.1); Protein, Total 7.4 g/dL (6.4-8.2); Sodium Level 137 mEq/L (136-145)
[2024-08-08 19:08] LABS: AST/SGOT < 10 U/L (15-37)
[2024-08-08] MEDS ORDERED: KETOROLAC 30 MG/ML INJ ONE (19:37)
[2024-08-08] MEDS ORDERED: ONDANSETRON 4 MG/2 ML VIAL ONE (19:37)
[2024-08-08] MEDS ORDERED: NA CHLORIDE 0.9% 1,000 ML ONE (19:37)
--- NOTE | 2024-08-08 20:09 | RAD REPORT ---
EXAMINATION: Abdomen Pelvis W Contrast CLINICAL INDICATION: Female, 18 years old.Abd pain;Flank pain TECHNIQUE: CT abdomen and pelvis was performed, after the administration of IV contrast, as per [facility] protocol. Axial, sagittal and coronal reconstructions were obtained. One or more of the following dose reduction techniques were used: Automated exposure control, adjustment of the mA and/o r kV according to patient size, and/or iterative reconstruction. Unless otherwise specified, incidental findings do not require dedicated imaging follow-up. [id number]. COMPARISON: 09/13/23 FINDINGS: LOWER CHEST: No acute process identified.No significant pericardial effusion. UPPER GI: No significant abnormality. LIVER: No significant focal abnormality. GALLBLADDER/BILE DUCTS: No biliary ductal dilatation.? PANCREAS: No mass, ductal dilation, or lopez-pancreatic fluid. SPLEEN: Mild splenomegaly. ADRENALS: No adrenal masses. KIDNEYS AND URETERS: No hydronephrosis.No suspicious renal mass. ABDOMINAL AORTA AND OTHER VESSELS: Normal caliber aorta and IVC. PERITONEUM: Small volume of pelvic free fluid which is likely physiologic. LYMPH NODES: Prominent ileocolic mesenteric lymph nodes. No lymphadenopathy. ABDOMINAL WALL: Unremarkable SMALL BOWEL/COLON: Small bowel has normal course and caliber. No colonic wall thickening or pericolon ic inflammatory changes. URINARY BLADDER: Nonspecific circumferential bladder wall thickening. REPRODUCTIVE ORGANS: IUD. MUSCULOSKELETAL: No acute or suspicious osseous abnormality. ADDITIONAL FINDINGS: None. IMPRESSION: No acute findings within the abdomen or pelvis. No appendicitis. Ancillary findings as noted above.
--- NOTE | 2024-08-08 20:24 | EDPHYS ---
Physician Documentation [facility] Name: Marlyn Garcia Age: 18 yrs Sex: Female : 2005 Arrival Date: 08/08/2024 Time: 16:46 Bed 12 Private MD: ED Physician Bassem Lopez HPI: 08/08 19:28 This 18 yrs old Female presents to ER via Ambulatory with complaints of Lower Back sb4 Pain, RT Abdomnial Pain, Nausea, Fever. 19:28 Patient reports right low back pain that radiates all around to her suprapubic area. sb4 Also endorses nausea and subjective fevers. States she has a history of "bladder reflux" and gets UTIs easily. States that she is usually asymptomatic until it gets to her kidney. States she was last on antibiotics about 4 months ago for a UTI. Endorses nausea, denies vomiting. Has felt hot but is unsure if she has had a fever. No chills. No abnormal color or odor in the urine. 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 - Infectious Disease History:: Denies. - Social history:: Smoking status: Patient denies any tobacco usage or history of. ROS: 19:28 Constitutional: Negative for fever, chills, and weight loss, sb4 19:28 Abdomen/GI: Positive for nausea, 19:28 Back: Positive for flank pain, 19:28 All other systems are negative, Exam: 19:28 Head/Face: Normocephalic, atraumatic. Eyes: Extra-ocular motions intact. Periorbital sb4 areas with no swelling, redness, or edema. ENT: Mucous membranes moist. Cardiovascular: Regular rate and rhythm with a normal S1 and S2. Respiratory: No increased work of breathing, no retractions or nasal flaring. Abdomen/GI: Soft, non-tender, no distension. Back: No spinal tenderness. No costovertebral tenderness. Full range of motion. Skin: Warm, dry with normal turgor. Normal color with no rashes, no lesions, and no evidence of cellulitis. 19:28 Constitutional: The patient appears alert, awake, uncomfortable, Vital Signs: 17:05 Weight 73.48 kg; ld1 17:05 BP 140 / 95; Pulse 91; Resp 18; Temp 98.4(TE); Pulse Ox 100% on R/A; Height 5 ft. 4 in. ld1 ; Pain 8/10; 17:05 Pain Scale: Adult ld1 MDM: 17:03 Medical Screening Exam initiated sb4 20:23 Data reviewed: vital signs, nurses notes, lab test result(s), radiologic studies, and sb4 as a result, I will discharge patient. Counseling: I had a detailed discussion with the patient and/or guardian regarding the historical points, exam findings, and any diagnostic results supporting the discharge/admit diagnosis, lab results, radiology results, the need for outpatient follow up, a urologist, to return to the emergency department if symptoms worsen or persist or if there are any questions or concerns that arise at home. 08/08 17:10 Order name: Blood Culture Adult (2) sb4 08/08 17:10 Order name: CBC with Diff; Complete Time: 18:44 sb4 08/08 17:10 Order name: CMP; Complete Time: 19:09 sb4 08/08 17:10 Order name: Lactate w/ 2H reflex if indic.; Complete Time: 19:09 sb4 08/08 17:10 Order name: Protime (+inr); Complete Time: 18:57 sb4 08/08 17:10 Order name: Ptt, Activated; Complete Time: 18:57 sb4 08/08 17:10 Order name: Urinalysis w/ reflexes; Complete Time: 18:48 sb4 08/08 17:10 Order name: Test, Urine; Complete Time: 18:44 sb4 08/08 17:10 Order name: CT Abd/Pelvis - IV Contrast Only; Complete Time: 20:10 sb4 08/08 17:10 Order name: IV Saline Lock - Large Bore; Complete Time: 18:37 sb4 08/08 17:10 Order name: Labs collected and sent; Complete Time: 18:37 sb4 Administered Medications: 19:57 Drug: NS 0.9% IV 1000 ml IV at 1 bolus Per protocol; to be given as a bolus over 60 vc1 minutes Route: IV; Rate: 1 bolus; Site: right antecubital; 19:57 Drug: Ketorolac IVP 15 mg IVP once Route: IVP; Site: right antecubital; vc1 19:57 Drug: Ondansetron IVP 4 mg IVP once; over 2 minutes Route: IVP; Site: right antecubital;vc1 20:37 Drug: Fluconazole PO 200 mg PO once Route: PO; vc1 Disposition Summary: 08/08/24 20:23 Discharge Ordered Notes: Location: Home sb4 Problem: new sb4 Symptoms: have improved sb4 Condition: Stable sb4 Diagnosis - Low back pain sb4 - Other urogenital candidiasis sb4 Followup: sb4 - With: Benton Adams MD - When: 1 week - Reason: Further diagnostic work-up, Recheck today's complaints, Re-evaluation by your physician Discharge Instructions: - Discharge Summary Sheet sb4 - Intravenous Pyelogram, [id number] sb4 Forms: - Patient Portal Instructions sb4 - Leadership Thank You Letter sb4 Addendum: 08/10/2024 07:04 Co-signature as Attending Physician, Bassem Lopez MD I reviewed the patient's care r n provided by the Advanced Practice Provider and agree with the diagnosis and treatment plan. Signatures: Dispatcher [employer] EDBassem Pinedo MD MD rn Sims, Lauren, RN RN ld1 Jaqueline Trejo RN RN vc1 Mansi Carrero PA-C PAGhada sb4 Corrections: (The following items were deleted from the chart) 08/08 17:11 17:11 BLOOD CULTURE*+BA.LAB.BRZ ordered. EDMS EDMS 17:11 17:11 CBC+H.LAB.BRZ ordered. EDMS EDMS 17:11 17:11 COMPREHENSIVE METABOLIC PANEL+C.LAB.BRZ ordered. EDMS EDMS 17:11 17:11 LACTATE+C.LAB.BRZ ordered. EDMS EDMS 17:11 17:11 PROTIME (+INR)+COAG.LAB.BRZ ordered. EDMS EDMS 17:11 17:11 PTT, ACTIVATED+COAG.LAB.BRZ ordered. EDMS EDMS 17:11 17:11 Urinalysis+U.LAB.BRZ ordered. EDMS EDMS 17:11 17:11 Test, Urine+UC.LAB.BRZ ordered. EDMS EDMS 17:11 17:11 Abdomen Pelvis W Con+CT.RAD.BRZ ordered. EDMS EDMS
--- NOTE | 2024-08-08 20:24 | ER ---
Nurse's Notes [facility] Name: Marlyn Garcia Age: 18 yrs Sex: Female : 2005 Arrival Date: 08/08/2024 Time: 16:46 Bed 12 Private MD: Diagnosis: Low back pain;Other urogenital candidiasis Presentation: 08/08 17:05 Chief complaint: Patient states: NATHAN flank pain, lower abdominal pain. Pt reports ld1 having history of UTI/Kidney infections. Nausea. Coronavirus screen: At this time, the client does not indicate any symptoms associated with coronavirus-19. Ebola Screen: No symptoms or risks identified at this time. Initial Sepsis Screen: Does the patient meet any 2 criteria? No. Patient's initial sepsis screen is negative. Does the patient have a suspected source of infection? No. Patient's initial sepsis screen is negative. Risk Assessment: Do you want to hurt yourself or someone else? Patient reports no desire to harm self or others. Onset of symptoms was August 08, 2024. 17:05 Method Of Arrival: Ambulatory ld1 17:05 Acuity: CT 3 ld1 Triage Assessment: 17:05 General: Appears in no apparent distress. uncomfortable, Behavior is calm, cooperative, ld1 appropriate for age. Pain: Complains of pain in low back area, right lower quadrant and left lower quadrant Pain does not radiate. Pain currently is 8 out of 10 on a pain scale. Quality of pain is described as throbbing, Pain began suddenly, Is continuous. EENT: No signs and/or symptoms were reported regarding the EENT system. Neuro: Level of Consciousness is awake, alert, obeys commands, Oriented to person, place, time, situation. Cardiovascular: Capillary refill < 3 seconds Patient's skin is warm and dry. Respiratory: Airway is patent Respiratory effort is even, unlabored. GI: Abdomen is round non-distended, Reports lower abdominal pain, nausea. : Reports pain in bilateral flank(s). Derm: No signs and/or symptoms reported regarding the dermatologic system. Musculoskeletal: No signs and/or symptoms reported regarding the musculoskeletal system. 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 - Infectious Disease History:: Denies. - Social history:: Smoking status: Patient denies any tobacco usage or history of. Screenin:[address] [facility] ED Fall Risk Assessment (Adult) History of falling in the last 3 months, vc1 including since admission No falls in past 3 months (0 pts) Confusion or Disorientation No (0 pts) Intoxicated or Sedated No (0 pts) Impaired Gait No (0 pts) Mobility Assist Device Used No (0 pt) Altered Elimination No (0 pt) Score/Fall Risk Level 0 - 2 = Low Risk Oriented to surroundings, Maintained a safe environment, Educated pt \T\ family on fall prevention, incl call for assistance when getting out of bed, Hourly rounding (assess needs \T\ fall precautionary measures) done. Abuse screen: Denies threats or abuse. Nutritional screening: No deficits noted. Tuberculosis screening: No symptoms or risk factors identified. Assessment: 20:58 Reassessment: Patient and/or family updated on plan of care and expected duration. Pain vc1 level reassessed. Patient is alert, oriented x 3, equal unlabored respirations, skin warm/dry/pink. Patient states feeling better. Patient states symptoms have improved. Vital Signs: 17:05 Weight 73.48 kg; ld1 17:05 BP 140 / 95; Pulse 91; Resp 18; Temp 98.4(TE); Pulse Ox 100% on R/A; Height 5 ft. 4 in. ld1 ; Pain 8/10; 17:05 Pain Scale: Adult ld1 ED Course: 16:52 Patient arrived in ED. cj3 16:53 Mansi Carrero PA-C is PHCP. sb4 16:53 Bassem Lopez MD is Attending Physician. sb4 17:05 Arm band placed on right wrist. ld1 17:07 Triage completed. ld1 18:37 Blood Culture Adult (2) Sent. bc6 18:37 CBC with Diff Sent. bc6 18:37 CMP Sent. bc6 18:37 Lactate w/ 2H reflex if indic. Sent. bc6 18:37 Protime (+inr) Sent. bc6 18:37 Ptt, Activated Sent. bc6 18:37 Urinalysis w/ reflexes Sent. bc6 18:37 Initial lab(s) drawn, by az, sent to lab. Inserted saline lock: 20 gauge in right 6 antecubital area, using aseptic technique. Blood collected. Flushed with 10 mL NS. 19:43 CT Abd/Pelvis - IV Contrast Only In Process Unspecified. EDMS 19:57 Jaqueline Trejo, RN is Primary Nurse. vc1 20:23 Benton Adams MD is Referral Physician. sb4 20:57 No provider procedures requiring assistance completed. IV discontinued, intact, vc1 bleeding controlled, No redness/swelling at site. Pressure dressing applied. Administered Medications: 19:57 Drug: NS 0.9% IV 1000 ml IV at 1 bolus Per protocol; to be given as a bolus over 60 vc1 minutes Route: IV; Rate: 1 bolus; Site: right antecubital; 19:57 Drug: Ketorolac IVP 15 mg IVP once Route: IVP; Site: right antecubital; vc1 19:57 Drug: Ondansetron IVP 4 mg IVP once; over 2 minutes Route: IVP; Site: right antecubital;vc1 20:37 Drug: Fluconazole PO 200 mg PO once Route: PO; vc1 Medication: 20:58 VIS not applicable for this client. vc1 Outcome: 20:23 Discharge ordered by . sb4 20:58 Discharged to home ambulatory, vc1 20:58 Condition: stable 20:58 Discharge instructions given to patient, Instructed on discharge instructions, follow up and referral plans. Demonstrated understanding of instructions, follow-up care, 20:58 Patient left the ED. vc1 Signatures: Dispatcher [employer] EDCA Riri Chamberlain, ANA RN ld1 Jaqueline Trejo, ANA RN vc1 Mansi Carrero PA-C PAGhada sb4 Agata Browning bc6 Deanne Chinchilla cj3 Corrections: (The following items were deleted from the chart) 17:07 17:05 Chief complaint: Patient states: NATHAN flank pain, lower abdominal pain. Pt reports ld1 having history of UTI/Kidney infections. N/V, fever. ld1 17:08 17:05 BP 140 / 95; Pulse 91bpm; Resp 18bpm; Pulse Ox 100% RA; Temp 98.4F Temporal; ld1 Height 5 ft. 4 in.; Pain 8/10, Adult; ld1
[2024-08-08] MEDS ORDERED: FLUCONAZOLE 100 MG TAB ONE (20:34)
[2024-08-09 07:51] VITALS: BP 140/95; TEMP 98.4; O2SAT 100
== END 2024-08-08 20:58 | disposition home or self-care (01) ==
LOC: ER 16:46
DX: M54.50 Low back pain, unspecified (principal); B37.49 Other urogenital candidiasis
CPT/HCPCS: 87040 ×2; 85025; 81001; 36415; 81025; 85610; 83605; 85730; 80053; 74177; Q9967; J2405; J7030